=== PATIENT | male | born 1980 ===

== ENCOUNTER 2016-05-07 19:59 | Emergency (ER) | payer MEDICARE, OTHER ==
[2016-05-07 19:59] VITALS: BMI 20.1
[2016-05-07 20:06] VITALS: TEMP 97.6; O2SAT 98
[2016-05-07] MEDS ORDERED: Sodium Chloride 0.9% 1,000 ML IV ONE (20:27)
--- NOTE | 2016-05-07 20:42 | C.PDOC ---
History Of Present Illness 35 year old male with a history of DM, presents to the ED after being sent by Dr. Escamilla for uncontrolled blood sugar. Patient states he takes three different medications but for the past week he has not been able to control his blood sugar. He notes feeling dry and having a headache and denies abdominal pain, nausea, vomiting, fever, dizziness, or any other complaints at this time. He has a history of nephrotic syndrome and is s/p renal transplant. Time Seen by Provider: 05/07/16 20:23 Chief Complaint (Nursing): High Blood Sugar History Per: Patient History/Exam Limitations: no limitations Onset/Duration Of Symptoms: Days Current Symptoms Are (Timing): Still Present Severity: Mild Past Medical History Reviewed: Historical Data, Nursing Documentation, Vital Signs Vital Signs: Last Vital Signs Temp 97.6 F 05/07/16 23:35 Pulse 83 05/07/16 23:20 Resp 14 05/07/16 23:20 BP 118/80 05/07/16 23:20 Pulse Ox 98 05/07/16 23:20 - Medical History PMH: Diabetes, HTN, Hypercholesterolemia, Chronic Kidney Disease Other PMH: Nephrotic syndrome. Other Surgeries: Renal Transplant Family History: States: Unknown Family Hx - Social History Hx Tobacco Use: No Hx Alcohol Use: Yes (OCC) Hx Substance Use: Yes (IV drugs) - Immunization History Hx Tetanus Toxoid Vaccination: Yes Hx Influenza Vaccination: No Hx Pneumococcal Vaccination: No Review Of Systems Except As Marked, All Systems Reviewed And Found Negative. Constitutional: Positive for: Other (+Dry mucosa). Negative for: Fever, Chills Cardiovascular: Negative for: Chest Pain Respiratory: Negative for: Shortness of Breath Gastrointestinal: Negative for: Nausea, Vomiting, Abdominal Pain Neurological: Positive for: Headache. Negative for: Weakness, Numbness, Dizziness Physical Exam - Physical Exam Appears: Non-toxic, No Acute Distress Skin: Normal Color, Warm, Dry Head: Atraumatic, Normacephalic Eye(s): bilateral: Normal Inspection Oral Mucosa: Dry Chest: Symmetrical, No Deformity Cardiovascular: Rhythm Regular (+Tachycardic), No Murmur Respiratory: Normal Breath Sounds, No Accessory Muscle Use, No Rales, No Rhonchi , No Wheezing Gastrointestinal/Abdominal: Soft, No Tenderness, No Distention, No Guarding, No Rebound Extremity: Normal ROM, No Deformity Neurological/Psych: Oriented x3, Normal Speech, Normal Cognition ED Course And Treatment - Laboratory Results Result Diagrams: 05/07/16 20:37 05/07/16 20:37 Lab Interpretation: Abnormal Interpretation Of Abnormal: Blood sugar 389, decreased to 286 after 2 liters of normal saline. Regular insulin given O2 Sat by Pulse Oximetry: 98 (Room air) Pulse Ox Interpretation: Normal Progress Note: Blood work and Urinalysis ordered and reviewed. Patient treated with IV fluids. Reevaluation Time: 23:10 Reassessment Condition: Improved (Feels much better after hydration.) Disposition - Disposition Referrals: Kriss Escamilla MD [Staff Provider] - Disposition: HOME/ ROUTINE Disposition Time: 23:11 Condition: IMPROVED Instructions: Diabetes Mellitus Type 1 in Adults (ED) - Clinical Impression Clinical Impression: Diabetes type 1, uncontrolled - Scribe Statement The provider has reviewed the documentation as recorded by the Scribe Ernesto Adkins. Provider Attestation: All medical record entries made by the Scribe were at my direction and personally dictated by me. I have reviewed the chart and agree that the record accurately reflects my personal performance of the history, physical exam, medical decision making, and the department course for this patient. I have also personally directed, reviewed, and agree with the discharge instructions and disposition.
[2016-05-07 20:48] LABS: BASO % 0.2 % (0.0-2.0); EOS % 0.1 % (0.0-4.0); HEMATOCRIT 36.9 % (35.0-51.0); LYMPH # 1.2 K/uL (1.0-4.3); LYMPH % 14.9 % (20.0-40.0); MEAN CORPUSCULAR HEMOGLOBIN 28.2 pg (27.0-31.0); MEAN CORPUSCULAR HGB CONC 33.1 g/dL (33.0-37.0); MEAN PLATELET VOLUME 8.9 fL (7.2-11.7); MONO # 0.7 K/uL (0.0-0.8); MONO % 8.6 % (0.0-10.0); RED CELL DISTRIBUTION WIDTH 14.6 % (11.5-14.5); WHITE BLOOD COUNT 7.7 K/uL (4.8-10.8)
[2016-05-07 20:49] LABS: MEAN CELL VOLUME 85.1 fL (80.0-94.0)
[2016-05-07 20:53] LABS: CHLORIDE 93 mmol/L (98-107); POTASSIUM 3.7 mmol/L (3.6-5.2); SODIUM 134 mmol/L (132-148)
[2016-05-07 20:55] LABS: ALB/GLOB RATIO 1.2 (1.0-2.1); ALKALINE PHOSPHATASE 105 U/L (38-126); AST/SGOT 51 U/L (17-59); BILIRUBIN,TOTAL 0.8 mg/dL (0.2-1.3); CARBON DIOXIDE 25 mmol/L (22-30); GFR AFRICAN-AMERICAN > 60; TOTAL PROTEIN 7.7 g/dL (6.3-8.3)
[2016-05-07 20:56] LABS: ALT/SGPT 67 U/L (21-72); BLOOD UREA NITROGEN 13 mg/dL (9-20); GLUCOSE,RANDOM 349 mg/dL (75-110)
[2016-05-07] MEDS ORDERED: (Novolin R) Insulin Human Regular 100 units/ml vial SC ONE (23:12)
[2016-05-07] MEDS ORDERED: (Novolin R) Insulin Human Regular 100 units/ml vial ONE (23:14)
[2016-05-07 23:21] VITALS: BP 118/80; PULSE 83; RESP 14
[2016-05-07 23:31] LABS: URINE BILIRUBIN NEGATIVE (NEGATIVE); URINE BLOOD NEGATIVE (NEGATIVE); URINE COLOR Yellow (YELLOW); URINE GLUCOSE (UA) 3+ mg/dL (Normal); URINE KETONE NEGATIVE (NEGATIVE); URINE LEUKOCYTE ESTERASE NEG Leu/uL (Negative); URINE PROTEIN NEGATIVE (NEGATIVE); URINE UROBILINOGEN NORMAL mg/dL (0.2-1.0); WBC URINE < 1 /hpf (0-5)
== END 2016-05-07 23:44 | disposition home or self-care (01) ==
LOC: C.ER 19:59
DX: E10.65 Type 1 diabetes mellitus with hyperglycemia (principal)
CPT/HCPCS: 80053; 81001; 82009; 82948; 85025; 96372; 99285; J7040

== ENCOUNTER 2016-05-08 16:51 | Emergency (ER) | payer MEDICARE, OTHER ==
[2016-05-08 16:52] VITALS: BMI 20.1
[2016-05-08 17:12] VITALS: TEMP 97.5
[2016-05-08] MEDS ORDERED: (Novolin R) Insulin Human Regular 100 units/ml vial SC STA (18:09)
[2016-05-08] MEDS ORDERED: Sodium Chloride 0.9% 1,000 ML IV ONE (18:09)
[2016-05-08 18:29] LABS: BASO % 0.1 % (0.0-2.0); EOS % 0.2 % (0.0-4.0); HEMATOCRIT 32.4 % (35.0-51.0); LYMPH # 0.8 K/uL (1.0-4.3); LYMPH % 17.8 % (20.0-40.0); MEAN CELL VOLUME 86.4 fL (80.0-94.0); MEAN CORPUSCULAR HEMOGLOBIN 28.1 pg (27.0-31.0); MEAN CORPUSCULAR HGB CONC 32.6 g/dL (33.0-37.0); MEAN PLATELET VOLUME 8.6 fL (7.2-11.7); MONO # 0.5 K/uL (0.0-0.8); MONO % 10.4 % (0.0-10.0); NRBC % 0.1 % (0.0-2.0); WHITE BLOOD COUNT 4.4 K/uL (4.8-10.8)
[2016-05-08] MEDS ORDERED: (Novolin R) Insulin Human Regular 100 units/ml vial ONE (18:33)
[2016-05-08] MEDS ORDERED: (Novolin R) Insulin Human Regular 100 units/ml vial SC ONE (18:35)
[2016-05-08 18:37] LABS: CHLORIDE 98 mmol/L (98-107)
[2016-05-08 18:38] LABS: POTASSIUM 4.6 mmol/L (3.6-5.2); SODIUM 134 mmol/L (132-148)
[2016-05-08 18:40] LABS: GFR AFRICAN-AMERICAN > 60
[2016-05-08 18:41] LABS: ALB/GLOB RATIO 1.2 (1.0-2.1); ALKALINE PHOSPHATASE 77 U/L (38-126); ALT/SGPT 52 U/L (21-72); AST/SGOT 38 U/L (17-59); BILIRUBIN,TOTAL 0.5 mg/dL (0.2-1.3); BLOOD UREA NITROGEN 10 mg/dL (9-20); CALCIUM 8.3 mg/dl (8.6-10.4); CARBON DIOXIDE 25 mmol/L (22-30)
[2016-05-08 18:45] LABS: GLUCOSE,RANDOM 413 mg/dL (75-110)
--- NOTE | 2016-05-08 19:31 | C.PDOC ---
History Of Present Illness 35 y/o male presents to the ED with complains of hyperglycemia the past few weeks. Pt states BGL usually in low 100s and lately has been high 200-300s. Pt saw Dr Escamilla yesterday, treated with fluids and insulin. Pt felt like his sugar elevated again today, called Andi who referred patient to ED for evaluation. Pt took his usual medications. PMHx renal transplant. Denies fever, chills, SOB , vomiting, headache or any other complaints. Time Seen by Provider: 05/08/16 17:27 Chief Complaint (Nursing): Dizziness/Lightheaded History Per: Patient History/Exam Limitations: no limitations Onset/Duration Of Symptoms: Days Severity: Mild Recent travel outside of the [place]: No Past Medical History Reviewed: Historical Data, Nursing Documentation, Vital Signs Vital Signs: Last Vital Signs Temp 97.5 F L 05/08/16 17:11 Pulse 99 H 05/08/16 22:43 Resp 16 05/08/16 22:43 BP 132/88 05/08/16 22:43 Pulse Ox 98 05/08/16 23:33 - Medical History PMH: Diabetes, HTN, Hypercholesterolemia, Chronic Kidney Disease Family History: States: Unknown Family Hx - Social History Hx Tobacco Use: No Hx Alcohol Use: Yes (OCC) Hx Substance Use: Yes (IV drugs) - Immunization History Hx Tetanus Toxoid Vaccination: Yes Hx Influenza Vaccination: No Hx Pneumococcal Vaccination: No Review Of Systems Except As Marked, All Systems Reviewed And Found Negative. Constitutional: Negative for: Fever, Chills Cardiovascular: Negative for: Chest Pain Respiratory: Negative for: Shortness of Breath Gastrointestinal: Negative for: Vomiting Neurological: Negative for: Headache Physical Exam - Physical Exam Appears: Non-toxic, No Acute Distress Skin: Warm, Dry, No Rash Head: Atraumatic, Normacephalic Oral Mucosa: Moist Neck: Normal ROM, Supple Chest: Symmetrical Cardiovascular: Rhythm Regular, No Murmur Respiratory: Normal Breath Sounds, No Rales, No Rhonchi, No Wheezing Extremity: Bilateral: Atraumatic Neurological/Psych: Oriented x3, Normal Speech ED Course And Treatment - Laboratory Results Result Diagrams: 05/08/16 18:24 05/08/16 18:24 O2 Sat by Pulse Oximetry: 98 (on room air) Pulse Ox Interpretation: Normal Medical Decision Making Medical Decision Making: Plan: EKG, UDS, insulin, UA, IV fluids Case discussed with and pt seen by dr Gooden, pt had recently started two different psych meds likely cause of the hyperglycemia sugar down ( mildly hypoglycemic in the ED but resolved with food Disposition - Disposition Disposition: HOME/ ROUTINE Disposition Time: 23:17 Condition: FAIR Additional Instructions: Start new insulin as explained by dr Breaux and adjust dose as needed Follow up with PMD Prescriptions: Insulin Human Regular [Novolin R] 10 unit SQ AC #1 bottle Syringe, Disposable, 3 ml [Syringe] 1 each MC DAILY #100 disp.syrin Instructions: Diabetic Hyperglycemia (ED) - Clinical Impression Clinical Impression: Hyperglycemia - Scribe Statement The provider has reviewed the documentation as recorded by the Lorna Quinones Provider Attestation: All medical record entries made by the Lorna were at my direction and personally dictated by me. I have reviewed the chart and agree that the record accurately reflects my personal performance of the history, physical exam, medical decision making, and the department course for this patient. I have also personally directed, reviewed, and agree with the discharge instructions and disposition.
[2016-05-08 20:20] LABS: RBC URINE < 1 /hpf (0-3); URINE BILIRUBIN NEGATIVE (NEGATIVE); URINE BLOOD NEGATIVE (NEGATIVE); URINE COLOR Straw (YELLOW); URINE GLUCOSE (UA) 3+ mg/dL (Normal); URINE KETONE NEGATIVE (NEGATIVE); URINE LEUKOCYTE ESTERASE NEG Leu/uL (Negative); URINE PROTEIN NEGATIVE (NEGATIVE); URINE UROBILINOGEN NORMAL mg/dL (0.2-1.0)
[2016-05-08 22:43] VITALS: BP 132/88; PULSE 99; RESP 16
[2016-05-08 23:24] VITALS: O2SAT 98
--- NOTE | 2016-05-10 14:55 | CARD ---
APPROVED REPORT EKG Measurement Heart [id number] <Conclusion> Normal sinus rhytthm. poss ols inferior mi.
== END 2016-05-09 00:51 | disposition home or self-care (01) ==
LOC: C.ER 16:51
DX: E11.65 Type 2 diabetes mellitus with hyperglycemia (principal)
CPT/HCPCS: 80053; 81001; 82009; 82948; 85025; 93005; 96360; 96372; 99285; G0480; J7040

== ENCOUNTER 2016-05-17 21:45 | Inpatient (IN) | payer MEDICARE, MEDICAID ==
[2016-05-17 21:46] VITALS: BMI 20.1
[2016-05-17 21:55] VITALS: O2SAT 98
--- NOTE | 2016-05-17 22:05 | C.PDOC ---
History Of Present Illness Patient presents to the ER with a complaint of hearing voices saying that they are going to kill him. Patient states he has suicidal ideation, he plans on over dosing on pills. Denies any other injury or trauma. Time Seen by Provider: 05/17/16 22:05 Chief Complaint (Nursing): Psychiatric Evaluation History Per: Patient History/Exam Limitations: no limitations Onset/Duration Of Symptoms: Hrs Current Symptoms Are (Timing): Still Present Suicide/Self Injury Attempted (Context): None Modifying Factor(s): None Severity: None Pain Scale Rating Of: 0 Associated Symptoms: Suicidal Thoughts, Suicidal Plan (Overdosing with pills), Other (Hearing voices) Involuntary Hold By: None Recent travel outside of the [place]: No Additional History Per: Patient Past Medical History Reviewed: Historical Data, Nursing Documentation, Vital Signs Vital Signs: Last Vital Signs Temp 98.9 F 05/17/16 21:53 Pulse 118 H 05/17/16 21:53 Resp 20 05/17/16 21:53 BP 135/95 H 05/17/16 21:53 Pulse Ox 98 05/18/16 00:49 - Medical History PMH: Diabetes, HTN, Hypercholesterolemia, Chronic Kidney Disease Family History: States: No Known Family Hx - Social History Hx Tobacco Use: No Hx Alcohol Use: Yes (OCC) Hx Substance Use: Yes (IV drugs) - Immunization History Hx Tetanus Toxoid Vaccination: Yes Hx Influenza Vaccination: No Hx Pneumococcal Vaccination: No Review Of Systems Constitutional: Negative for: Fever, Chills Respiratory: Negative for: Shortness of Breath Gastrointestinal: Negative for: Nausea, Vomiting Psych: Positive for: Suicidal ideation (plans on overdosing with pills) Physical Exam - Physical Exam Appears: Well, Non-toxic Skin: Warm, Dry Eye(s): bilateral: Normal Inspection Oral Mucosa: Moist Neck: Supple Chest: Symmetrical Cardiovascular: Rhythm Regular Respiratory: No Rales, No Rhonchi, No Wheezing Gastrointestinal/Abdominal: Soft, No Tenderness Back: Normal Inspection Extremity: Normal ROM Extremity: Bilateral: Atraumatic Neurological/Psych: Oriented x3, Normal Speech, Normal Cognition Gait: Steady ED Course And Treatment - Laboratory Results Result Diagrams: 05/17/16 22:40 05/17/16 22:40 O2 Sat by Pulse Oximetry: 98 (Room air) Pulse Ox Interpretation: Normal Progress Note: Blood work and urinalysis ordered. Ativan PO administered. Pt will need tid or qid accuchecks to monitor his sugars Disposition Discussed With Dr.: Jesus Ferris Comment: accepted the pt on his service and took over the care at 12:45 AM Doctor Will See Patient In The: Hospital Counseled Patient/Family Regarding: Studies Performed, Diagnosis - Disposition Disposition: HOSPITALIZED Disposition Time: 22:05 Condition: FAIR - POA Present On Arrival: Poor Glycemic Control - Clinical Impression Clinical Impression: Schizophrenia - Scribe Statement The provider has reviewed the documentation as recorded by the Scribreed Ovalle All medical record entries made by the Scribe were at my direction and personally dictated by me. I have reviewed the chart and agree that the record accurately reflects my personal performance of the history, physical exam, medical decision making, and the department course for this patient. I have also personally directed, reviewed, and agree with the discharge instructions and disposition. Decision To Admit - Pt Status Changed To: Hospital Disposition Of: Inpatient - Admit Certification Admit to Inpatient:: After my assessment, the patient will require hospitalization for at least two midnights. This is because of the severity of symptoms shown, intensity of services needed, and/or the medical risk in this patient being treated as an outpatient. - InPatient: Physician Admission Certification: I certify that this patient requires 2 or more midnights of care for the following reason:: After my assessment, the patient will require hospitalization for at least two midnights. This is because of the severity of symptoms shown, intensity of services needed, and/or the medical risk in this patient being treated as an outpatient. - . Bed Request Type: Psychiatry Admitting Physician: Jesus Ferris Patient Diagnosis: Schizophrenia
[2016-05-17 22:45] LABS: BASO % 0.3 % (0.0-2.0); EOS % 0.2 % (0.0-4.0); HEMATOCRIT 38.3 % (35.0-51.0); LYMPH # 1.3 K/uL (1.0-4.3); LYMPH % 23.4 % (20.0-40.0); MEAN CELL VOLUME 87.7 fL (80.0-94.0); MEAN CORPUSCULAR HEMOGLOBIN 28.4 pg (27.0-31.0); MEAN CORPUSCULAR HGB CONC 32.4 g/dL (33.0-37.0); MEAN PLATELET VOLUME 8.3 fL (7.2-11.7); MONO # 0.7 K/uL (0.0-0.8); MONO % 13.3 % (0.0-10.0); NRBC % 0.1 % (0.0-2.0); WHITE BLOOD COUNT 5.5 K/uL (4.8-10.8)
[2016-05-17 22:54] LABS: CHLORIDE 97 mmol/L (98-107); SODIUM 137 mmol/L (132-148)
[2016-05-17 22:56] LABS: ALB/GLOB RATIO 1.3 (1.0-2.1); ALKALINE PHOSPHATASE 87 U/L (38-126); AST/SGOT 56 U/L (17-59); BILIRUBIN,TOTAL 0.6 mg/dL (0.2-1.3); CARBON DIOXIDE 23 mmol/L (22-30); GFR AFRICAN-AMERICAN > 60; TOTAL PROTEIN 7.1 g/dL (6.3-8.3)
[2016-05-17 22:57] LABS: ALCOHOL SERUM < 10 mg/dl (0-10); ALT/SGPT 77 U/L (21-72); BLOOD UREA NITROGEN 10 mg/dL (9-20); CALCIUM 9.3 mg/dl (8.6-10.4); GLUCOSE,RANDOM 362 mg/dL (75-110)
[2016-05-17 23:16] LABS: RBC URINE < 1 /hpf (0-3); URINE BILIRUBIN NEGATIVE (NEGATIVE); URINE BLOOD NEGATIVE (NEGATIVE); URINE COLOR Straw (YELLOW); URINE GLUCOSE (UA) 3+ mg/dL (Normal); URINE KETONE NEGATIVE (NEGATIVE); URINE LEUKOCYTE ESTERASE NEG Leu/uL (Negative); URINE PROTEIN NEGATIVE (NEGATIVE); URINE UROBILINOGEN NORMAL mg/dL (0.2-1.0); WBC URINE < 1 /hpf (0-5)
[2016-05-17] MEDS ORDERED: (Novolin R) Insulin Human Regular 100 units/ml vial SC ONE (23:33)
--- NOTE | 2016-05-18 13:53 | PCM.PSYCH ---
Initial Psychiatric Evaluation - Initial Psychiatric Evaluation Type of Admission: Voluntary Legal Status: Capacity Chief Complaint (in patient's own words): I was hearing voices, telling me that they will kill you. History of Present Illness and Precipitating Events: Patient is a 35 years old, single, unemployed, male with history of schizophrenia for last 5 years, reported compliant with treatment including Zyprexa, Abilify and Wellbutrin. Patient reported he was attending [facility] outpatient. Reported yesterday he started hearing voices telling him that they will kill him and also reported he had suicidal ideation with plan to overdose on his medication. Patient came to [facility] for help and was admitted to [facility]. Patient reported not feeling depressed but reported has some problem with sleep. Reported history of frequent suicidal ideations, last had yesterday with plan to overdose on his pills. Reported history of 2 previous suicidal attempts. First was in 2007 and second one 2013. And both he overdose on Cogentin and Xanax. Reported he was not admitted in the hospital after these attempts. History of 8 inpatient psychiatric admissions at [facility] and [facility] prior to this admission. This is his first admission at [facility]. Also reported hearing voices at times. The voices were telling him that they will kill him. Denied any manic symptoms. Heroin: Started using heroin at the age of 16 years, was using 20 bags daily, IV. His last use was 1 month ago. Longest period of abstinence 3 years. Relapsed a few months ago. History of 3 detox and 3 rehabs. Cocaine: Started at the age of 23 years, using unknown amount, last use reported 3 days ago. Cannabis: He was guarded about cannabis use but last use reported 3 weeks ago. Alcohol: He reports drinking alcohol once a week. Reported he drinks 5 beers each time. Last drink reported 2 days ago, 5 beers. Denied smoking cigarettes. Patient has history of right renal transplant. Reported he was in half-way for some time due to possession of weapon but not on probation. He was born in [place]. Has high school graduation. Not working. His last job was in 2000. He is on SSDI. He is single, has 2 children, 16 years and 14 years old who live with their mother. Patient lives with his mother. Height is 5 feet 6 inches and weight is 134 pounds. Current Medications: Active Medications Generic Name Dose Route Start Last Admin Trade Name Freq PRN Reason Stop Dose Admin Bupropion HCl 300 mg 05/18/16 13:45 Wellbutrin Xl PO DAILY DAISY Gabapentin 300 mg 05/18/16 18:00 Neurontin PO BID DAISY Haloperidol 5 mg 05/18/16 13:41 Haldol PO Q6 PRN Agitation Hydroxyzine HCl 25 mg 05/18/16 13:42 Atarax PO Q6 PRN Anxiety Olanzapine 10 mg 05/18/16 18:00 Zyprexa PO BID DAISY Trazodone HCl 50 mg 05/18/16 22:00 Desyrel PO HS DAISY Past Psychiatric History - Past Psychiatric History Previous Treatment History: Inpatient At [facility]: [facility], [facility] History of Abuse: None reported History of ETOH/Drug Use: See HPI History of Family Illness: None reported Pertinent Medical Hx (Current Medical&Sleep Prob, Allergies): Allergies Allergy/AdvReac Type Severity Reaction Status Date / Time No Known Allergies Allergy Verified 05/17/16 21:54 Glimepiride 4 mg PO BID 01/12/13 Mycophenolate [Cellcept Cap] 750 mg PO BID 01/12/13 Pantoprazole Sodium [Protonix] 1 tab PO DAILY 01/12/13 SITagliptin [Januvia] 50 mg PO DAILY 01/12/13 Tacrolimus [Prograf] 2 mg PO AMHS 01/12/13 predniSONE [predniSONE Tab] 5 mg PO DAILY 11/24/15 Insulin Glargine, Recombina [Lantus] 20 unit SC DAILY PRN 02/22/16 Amlodipine Besylate/Benazepril [Amlodipine-Benazepril 5-10 mg] 1 cap PO DAILY Aripiprazole 5 mg PO DAILY 05/08/16 Atorvastatin [Lipitor] 10 mg PO HS 05/08/16 Insulin Human Regular [Novolin R] 10 unit SQ AC #1 bottle 05/08/16 Meclizine HCl 12.5 mg PO DAILY 05/08/16 Olanzapine [Zyprexa] 20 mg PO DAILY 05/08/16 Zolpidem [Ambien] 10 mg PO DAILY 05/08/16 buPROPion XL [Wellbutrin XL] 300 mg PO DAILY 05/08/16 Hypertension Diabetes mellitus Hypercholesterinemia Right renal transplant secondary to Nephrotic syndrome Review of Systems - Psychiatric Psychiatric: Depression, Paranoia Mental Status Examination - Personal Presentation Personal Presentation: Looks stated age - Affect Affect: Depressed - Motor Activity Motor Activity: Calm - Reliability in Providing Information Reliability in Providing Information: Fair - Speech Speech: Organized - Mood Mood: Depressed - Formal Thought Process Formal Thought Process: No Impairment (In the time of evaluation) - Hallucinations/Delusions Hallucinations: Other (None reported) Delusions: Other - Obsessions/Compulsions Obsessions: None Compulsions: None - Cognitive Functions Orientation: Person, Place, Situation, Time Sensorium: Alert Attention/Concentration: Attentive Abstract Thinking: Dell Estimate of Intelligence: Average Judgement: Intact, as evidence by: Insight regarding need for hospitalization Memory: Recent intact, as evidence by: 3/3 object recall, Remote intact, as evidenced by: Ability to recall historical events - Risk Risk: Diminished functioning - Strength & Assets Inventory Strength & Assets Inventory: Family support, Cooperative - Limitations Limitations: Other DSM 5 DX - DSM 5 DSM 5 Diagnosis: Schizophrenia Opiate use disorder severe Cocaine use disorder Cannabis use disorder - Recommended/Plan of Treatment Treatment Recommendations and Plan of Treatment: Patient education Supportive therapy We will start home medications including Zyprexa, Wellbutrin, insulin, amlodipine, enalapril and Crestor. Medical consult Other when necessary medications Projected ELOS: 8-10 days - Smoking Cessation Smoking Cessation Initiated: No Reason for not providing: Patient doesn't smoke cigarettes
[2016-05-18] MEDS ORDERED: (Lantus) Insulin Glargine, Recombinant SC SCH (14:00)
[2016-05-18] MEDS: buPROPion 150 mg/24 Hours XL Tab PO SCH (14:20)
--- NOTE | 2016-05-18 15:17 | CP.PCM.CON ---
<Montse Melendez - Last Filed: 05/18/16 15:43> History of Present Illness - History of Present Illness History of Present Illness: Medicine Consult Note for Dr. Hutchinson Reason for consult: T2DM, hx of kidney transplant, HTN Patient is a 35year old male PMHx HTN, T2DM, hypercholesterolemia, anxiety, schizophrenia, and a kidney transplant in 2002 admitted to psychiatric unit for suicidal ideations. Medicine team was consulted to manage his medical problems. Patient reported he wanted to kill himself as voices were telling him to do so. The last time he tried to commit suicide was 2007 and 2013 and did so with ingestion of pills. Patient did not ingest any pills and decided to come in. Patient was diagnosed with renal failure in 2001 and was on hemodialysis for 1 year before a kidney transplant in 2002. Patient has been going to the transplant clinic every 3 months since transplant and his last visit was 2 months ago for a general follow up. Patient was diagnosed with diabetes from nephrotic syndrome at the time of his transplant. Patient has an extensive drug abuse history. He was smoking marijuana since he was in his 20s and quit 1 month ago. 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 Patient smoked crack 3 days ago and was dong so for 10 years. He promised his mother he would quit this time. Patient reported smoking 1 gram. Patient also drinks 5 large beers every week and smokes cigarettes once a week. He lives at home with his mother and does not work. Patient denied any recent travel or sick contacts. He reported temporal headaches for which he takes tylenol and some light headedness and dizziness whenever he stands up from a sitting position which has been present for the past couple of weeks. Patient also reports some shortness of breath and feeling like his heart is racing which arises at random occasions. Patient has also had a decreased appetite and his last BM was 2 days ago. Since being on haldol he reported losing 20 pounds. Patient was also complaining of polyuria and polydipsia. He denied any acute chest pain, abdominal pain, nausea, vomiting, diarrhea, pain in his legs, focal weakness. PMD: Dr. Escamilla Psychiatrist: Dr. Margy Villela [facility]rology: [facility] [no single doctor] Meds: reconciled ALL: NKDA PMHx: DM, HTN, Hypercholesterolemia, anxiety PSur AV fistula placed R arm, 2002 kidney transplant, 1999 retinal detachment FamHx: father had NV and CVA in his 30s; aunt had leukemia SocHx: Smoking marijuana since he was in his 20s and quit 1 month ago. Using heroin since he was 16 years old and quit 1 month ago. Smoked crack 3 days ago and was dong so for 10 years. Drinks 5 large beers every week and smokes cigarettes once a week. ROS: headache, dizziness, lightheadness, SOB, polyuria, polydipsia, decreased weight, decreased appetite Review of Systems - Constitutional Constitutional: As Per HPI. absent: Chills, Fever - EENT Eyes: As Per HPI, Blurred Vision (hx retinal detachment) Ears: As Per HPI, Dizziness Nose/Mouth/Throat: As Per HPI. absent: Sore Throat - Cardiovascular Cardiovascular: As Per HPI, Palpitations. absent: Chest Pain, Chest Pain at Rest, Claudication, Diaphoresis, Dyspnea, Dyspnea on Exertion, Edema, Pedal Edema - Respiratory Respiratory: As Per HPI. absent: Cough, Dyspnea, Dyspnea on Exertion, Wheezing , Chest Congestion - Gastrointestinal Gastrointestinal: As Per HPI. absent: Abdominal Pain, Constipation, Diarrhea, Nausea, Vomiting - Genitourinary Genitourinary: As Per HPI, Urinary Frequency. absent: Dysuria, Nocturia - Musculoskeletal Musculoskeletal: As Per HPI. absent: Numbness, Stiffness, Tingling - Integumentary Integumentary: As Per HPI. absent: Pruritus, Rash - Neurological Neurological: As Per HPI, Dizziness, Headaches, Weakness. absent: Numbness, Focal Weakness, Syncope, Tingling - Psychiatric Psychiatric: As Per HPI, Anxiety, Change in Appetite, Depression, Suicidal Ideation, Visual Hallucinations - Endocrine Endocrine: As Per HPI, Palpitations, Polydipsia, Polyuria. absent: Polyphagia - Hematologic/Lymphatic Hematologic: As Per HPI. absent: Easy Bleeding, Easy Bruising Past Patient History - Infectious Disease Hx of Infectious Diseases: None - Past Social History Smoking Status: Current Some Days Smoker - CARDIAC Hx Hypercholesterolemia: Yes Hx Hypertension: Yes - PULMONARY Hx Respiratory Disorders: No Hx Tuberculosis: No - NEUROLOGICAL Hx Seizures: No - HEENT Hx HEENT Problems: No - RENAL Hx Chronic Kidney Disease: Yes - ENDOCRINE/METABOLIC Hx Endocrine Disorders: Yes Hx Diabetes Mellitus Type 2: Yes - HEMATOLOGICAL/ONCOLOGICAL Hx Human Immunodeficiency Virus (HIV): No - INTEGUMENTARY Hx Dermatological Problems: No - MUSCULOSKELETAL/RHEUMATOLOGICAL Hx Musculoskeletal Disorders: No - GASTROINTESTINAL Hx Gastrointestinal Disorders: No - GENITOURINARY/GYNECOLOGICAL Hx Sexually Transmitted Disorders: No - PSYCHIATRIC Hx Substance Use: Yes - SURGICAL HISTORY Hx Surgeries: Yes Hx Eye Surgery: Yes (left retina detachment) Hx Kidney Transplant: Yes (2002 right kidney) - ANESTHESIA Hx Anesthesia: Yes Hx Anesthesia Reactions: No Meds Allergies/Adverse Reactions: Allergies Allergy/AdvReac Type Severity Reaction Status Date / Time No Known Allergies Allergy Verified 05/17/16 21:54 - Medications Medications: Current Medications Amlodipine Besylate (Norvasc) 5 mg PO DAILY [facility] Last Admin: 05/18/16 14:15 Dose: 5 mg Bupropion HCl (Wellbutrin Xl) 300 mg PO DAILY [facility] Last Admin: 05/18/16 14:20 Dose: Not Given Enalapril Maleate (Vasotec) 5 mg PO DAILY [facility] Gabapentin (Neurontin) 300 mg PO BID [facility] Haloperidol (Haldol) 5 mg PO Q6 PRN PRN Reason: Agitation Last Admin: 05/18/16 14:15 Dose: 5 mg Hydroxyzine HCl (Atarax) 25 mg PO Q6 PRN PRN Reason: Anxiety Last Admin: 05/18/16 14:15 Dose: 25 mg Insulin Glargine (Lantus) 20 unit SC DAILY [facility] Last Admin: 05/18/16 14:16 Dose: 20 u Insulin Human Regular (Novolin R) 10 unit SC ACHS [facility] Olanzapine (Zyprexa) 10 mg PO BID [facility] Rosuvastatin Calcium (Crestor) 5 mg PO HS DAISY Trazodone HCl (Desyrel) 50 mg PO HS [facility] Physical Exam - Constitutional Appears: Non-toxic, No Acute Distress - Head Exam Head Exam: ATRAUMATIC, NORMAL INSPECTION, NORMOCEPHALIC - Eye Exam Eye Exam: Normal appearance. absent: Conjunctival injection, Scleral icterus - ENT Exam ENT Exam: Mucous Membranes Dry - Neck Exam Neck exam: Positive for: Normal Inspection - Respiratory Exam Respiratory Exam: Clear to Auscultation Bilateral, NORMAL BREATHING PATTERN. absent: Accessory Muscle Use, Rales, Rhonchi, Wheezes, Respiratory Distress - Cardiovascular Exam Cardiovascular Exam: Tachycardia, REGULAR RHYTHM, +S1, +S2 - GI/Abdominal Exam GI & Abdominal Exam: Normal Bowel Sounds, Soft. absent: Distended, Firm, Guarding, Rigid, Tenderness - Extremities Exam Extremities exam: Positive for: normal capillary refill, normal inspection, pedal pulses present - Back Exam Back exam: NORMAL INSPECTION. absent: rash noted, tenderness - Neurological Exam Neurological exam: Alert, Oriented x3 - Psychiatric Exam Psychiatric exam: Flat Affect, Suicidal Ideation - Skin Skin Exam: Dry, Intact, Normal Color, Warm Results - Vital Signs Recent Vital Signs: Last Vital Signs Temp 96.6 F L 05/18/16 07:31 Pulse 108 H 05/18/16 07:31 Resp 18 05/18/16 07:31 BP 130/92 H 05/18/16 07:31 Pulse Ox 98 05/18/16 02:12 - Labs Result Diagrams: 05/17/16 22:40 05/17/16 22:40 Labs: Laboratory Results - last 24 hr 05/18/16 05/18/16 05/18/16 00:52 07:16 11:36 POC Glucose (mg/dL) 167 H 275 H 279 H Assessment & Plan - Assessment and Plan (Free Text) Assessment: 35year old male PMHx HTN, T2DM, hypercholesterolemia, anxiety, schizophrenia, and a kidney transplant in 2002 Plan: Diabetes f/u HgbA1c restart patient on home medications: Glimepiride 1mg po daily Lantus 20U SC qhs Neurontin 300mg po bid Januvia 25mg po daily Accucheck RISS Diabetic Diet Hx Kidney transplant 2002 Tacrolimus 1mg po hs Tacrolimus 2mg po qam Prednisone 5mg po daily Cellcept 500mg po q12 Hypertension Norvasc 5mg po daily Enalapril 5mg po daily f/u EKG f/u TSH and free T4 Hypercholesterolemia f/u lipid panel Crestor 5mg PO QHS Depression and suicidal ideation Managed as per psych Schizophrenia Managed as per psych Multi drug abuse Managed as per psych PPX Pepcid 20mg po daily Patient is ambulating- no SCDs on psych floor Diabetic Diet Case discussed with Dr. Jasper Melendez PGY1 <Dorene Hutchinson V - Last Filed: 05/31/16 05:30> Results - Vital Signs Recent Vital Signs: Last Vital Signs Temp 97.8 F 05/29/16 11:01 Pulse 99 H 05/29/16 11:01 Resp 20 05/29/16 11:01 BP 101/71 04/13/17 11:01 Pulse Ox 98 05/18/16 02:12 - Labs Result Diagrams: 05/26/16 06:49 05/26/16 06:49 Attending/Attestation - Attestation I have personally seen and examined this patient.: Yes I have fully participated in the care of the patient.: Yes I have reviewed all pertinent clinical information: Yes Notes (Text): This is a late computer entry for 05/18/16. Patient seen, examined, and case discussed with day-time resident. Psych request medical consult for diabetes and hx of kidney transplant. Agree with assessment/plan completed by the resident. Discussed orders with the resident. Assessment/Plan: Diabetes type 2 f/u HgbA1c restart patient on home medications: Glimepiride 1mg po daily Lantus 20U SC qhs Neurontin 300mg po bid Januvia 25mg po daily Accucheck RISS Diabetic Diet Hx Kidney transplant 2002 Tacrolimus 1mg po hs Tacrolimus 2mg po qam Prednisone 5mg po daily Cellcept 500mg po q12 Hypertension Norvasc 5mg po daily Enalapril 5mg po daily f/u EKG f/u TSH and free T4 Hypercholesterolemia f/u lipid panel Crestor 5mg PO QHS Depression and suicidal ideation Managed as per psych Schizophrenia Managed as per psych Multi drug abuse Managed as per psych PPX Pepcid 20mg po daily Patient is ambulating- no SCDs on psych floor Diabetic Diet
[2016-05-18] MEDS ORDERED: (Novolin R) Insulin Human Regular 100 units/ml vial SC SCH (16:30)
[2016-05-18] MEDS: (Novolog) Insulin Aspart, Recombinant 100 u/ml 10 ml vial SC SCH ×2 (18:45→21:14)
[2016-05-19 07:35] LABS: BASO % 0.4 % (0.0-2.0); EOS % 0.2 % (0.0-4.0); LYMPH # 0.8 K/uL (1.0-4.3); LYMPH % 16.9 % (20.0-40.0); MEAN CELL VOLUME 87.7 fL (80.0-94.0); MEAN CORPUSCULAR HEMOGLOBIN 29.1 pg (27.0-31.0); MEAN CORPUSCULAR HGB CONC 33.2 g/dL (33.0-37.0); MEAN PLATELET VOLUME 8.5 fL (7.2-11.7); MONO # 0.6 K/uL (0.0-0.8); MONO % 12.6 % (0.0-10.0); RED CELL DISTRIBUTION WIDTH 15.1 % (11.5-14.5); WHITE BLOOD COUNT 4.6 K/uL (4.8-10.8)
[2016-05-19 07:51] LABS: POTASSIUM 5.2 mmol/L (3.6-5.2)
[2016-05-19 07:53] LABS: ALB/GLOB RATIO 1.3 (1.0-2.1); BILIRUBIN,TOTAL 0.7 mg/dL (0.2-1.3); TOTAL PROTEIN 6.7 g/dL (6.3-8.3)
[2016-05-19 07:54] LABS: CALCIUM 8.9 mg/dl (8.6-10.4); MAGNESIUM 1.4 mg/dL (1.6-2.3); PHOSPHOROUS 3.2 mg/dL (2.5-4.5)
[2016-05-19] MEDS: (Novolog) Insulin Aspart, Recombinant 100 u/ml 10 ml vial SC SCH ×4 (08:11→21:15)
[2016-05-19 08:24] LABS: THYROID STIMULATING HORMONE 0.43 mIU/L (0.46-4.68)
[2016-05-19] MEDS: buPROPion 150 mg/24 Hours XL Tab PO SCH (10:46)
--- NOTE | 2016-05-19 11:00 | CP.PCM.PN ---
<Almaz Herrera - Last Filed: 05/19/16 15:48> Subjective - Date & Time of Evaluation Date of Evaluation: 05/19/16 Time of Evaluation: 07:50 - Subjective Subjective: Internal medicine progress note for Hospitalist service-Almaz Herrera, PGY-1 Pt S & E at bedside. Pt reports some fatigue, few chills overnight. Admits to decreased appetite- last meal was last - has not had a BM since. Denies N/V/F, SOB, CP, abdominal pain. Objective - Vital Signs/Intake and Output Vital Signs (last 24 hours): Temp Pulse Resp BP Pulse Ox 96.6 F L 103 H 18 92/68 L 98 05/18/16 07:31 05/18/16 16:01 05/18/16 07:31 05/19/16 10:46 05/18/16 02:12 - Medications Medications: Current Medications Amlodipine Besylate (Norvasc) 5 mg PO BID [facility] Last Admin: 05/19/16 10:42 Dose: Not Given Bupropion HCl (Wellbutrin Xl) 300 mg PO DAILY [facility] Last Admin: 05/19/16 10:46 Dose: 300 mg Enalapril Maleate (Vasotec) 5 mg PO DAILY [facility] Last Admin: 05/19/16 10:46 Dose: Not Given Famotidine (Pepcid) 20 mg PO DAILY [facility] Last Admin: 05/19/16 10:43 Dose: 20 mg Gabapentin (Neurontin) 300 mg PO BID [facility] Last Admin: 05/19/16 10:42 Dose: 300 mg Glimepiride (Amaryl) 1 mg PO DAILY [facility] Last Admin: 05/19/16 10:44 Dose: 1 mg Haloperidol (Haldol) 5 mg PO Q6 PRN PRN Reason: Agitation Last Admin: 05/18/16 14:15 Dose: 5 mg Hydroxyzine HCl (Atarax) 25 mg PO Q6 PRN PRN Reason: Anxiety Last Admin: 05/18/16 14:15 Dose: 25 mg Insulin Aspart (Novolog) 0 unit SC ACHS [facility]Y PRN Reason: Protocol Last Admin: 05/19/16 08:11 Dose: 3 unit Insulin Glargine (Lantus) 20 unit SC HS [facility] Lorazepam (Ativan) 1 mg PO Q8 PRN PRN Reason: Anxiety Last Admin: 05/18/16 18:43 Dose: 1 mg Mycophenolate Mofetil (Cellcept) 500 mg PO Q12 [facility] Last Admin: 05/19/16 10:45 Dose: 500 mg Olanzapine (Zyprexa) 10 mg PO BID [facility] Last Admin: 05/19/16 10:43 Dose: 10 mg Prednisone (Prednisone Tab) 5 mg PO DAILY [facility] Last Admin: 05/19/16 10:45 Dose: 5 mg Rosuvastatin Calcium (Crestor) 5 mg PO [facility] Last Admin: 05/18/16 21:13 Dose: 5 mg Sitagliptin Phosphate (Januvia) 25 mg PO DAILY [facility] Last Admin: 05/19/16 10:44 Dose: 25 mg Tacrolimus (Prograf Cap) 2 mg PO QAM [facility] Last Admin: 05/19/16 10:44 Dose: 2 mg Tacrolimus (Prograf Cap) 1 mg PO [facility] Last Admin: 05/18/16 21:14 Dose: 1 mg Trazodone HCl (Desyrel) 50 mg PO [facility] Last Admin: 05/18/16 21:13 Dose: 50 mg - Labs Labs: 05/19/16 07:28 05/19/16 07:28 - Constitutional Appears: Non-toxic, No Acute Distress - Head Exam Head Exam: ATRAUMATIC, NORMAL INSPECTION, NORMOCEPHALIC - Eye Exam Eye Exam: EOMI, Normal appearance, PERRL Pupil Exam: NORMAL ACCOMODATION, PERRL - ENT Exam ENT Exam: Mucous Membranes Moist, Normal Exam - Neck Exam Neck Exam: Full ROM, Normal Inspection - Respiratory Exam Respiratory Exam: Clear to Ausculation Bilateral, NORMAL BREATHING PATTERN - Cardiovascular Exam Cardiovascular Exam: REGULAR RHYTHM, +S1, +S2 - GI/Abdominal Exam GI & Abdominal Exam: Soft, Normal Bowel Sounds. absent: Tenderness - Extremities Exam Extremities Exam: Full ROM. absent: Normal Inspection (Slight tremors of B/L hands on extension) - Neurological Exam Neurological Exam: Alert, Awake, CN II-XII Intact, Oriented x3 - Psychiatric Exam Psychiatric exam: Normal Affect, Normal Mood - Skin Skin Exam: Dry, Intact, Normal Color, Warm Assessment and Plan - Assessment and Plan (Free Text) Assessment: Diabetes HgbA1c 12.1 BS now 251 Cont home medications: Glimepiride 1mg po daily, Lantus 20U SC qhs increased to 24 Units HS Started pt on ISS AcHS Neurontin 300mg po bid Januvia 25mg po daily- holding Accucheck RISS Diabetic Diet Hx Kidney transplant 2002 Tacrolimus 1mg po hs Tacrolimus 2mg po qam Prednisone 5mg po daily Cellcept 500mg po q12 Hypertension Norvasc 5mg po daily Enalapril 5mg po daily f/u EKG TSH 0.43- low Free T4 1.07 Hypercholesterolemia Lipid panel TG 85, Chol 121, LDL 46, HDl 49 Cont Crestor 5mg PO QHS Hypomagnesemia Mg 1.4 Replaced Monitor Depression and suicidal ideation Managed as per psych Schizophrenia Managed as per psych Multi drug abuse Managed as per psych PPX Pepcid 20mg po daily Patient is ambulating- no SCDs on psych floor Diabetic Diet Dispo: mgmt as per psych Cont current medical mgmt Ambulate DW attending <Juan C Miles - Last Filed: 06/21/16 18:07> Objective - Vital Signs/Intake and Output Vital Signs (last 24 hours): Temp Pulse Resp BP Pulse Ox 97.8 F 99 H 20 101/71 98 05/29/16 11:01 05/29/16 11:01 05/29/16 11:01 05/29/16 11:01 05/18/16 02:12 - Labs Labs: 05/26/16 06:49 05/26/16 06:49 Attending/Attestation - Attestation I have personally seen and examined this patient.: Yes I have fully participated in the care of the patient.: Yes I have reviewed all pertinent clinical information, including history, physical exam and plan: Yes Notes (Text): Patient seen and examined with the resident. Agree with the resident's evaluation, assessment and plan. Diabetes HgbA1c 12.1 BS now 251 Cont home medications: Glimepiride 1mg po daily, Lantus 20U SC qhs increased to 24 Units HS Started pt on ISS [facility] Neurontin 300mg po bid Januvia 25mg po daily- holding Accucheck RISS Diabetic Diet Hx Kidney transplant 2002 Tacrolimus 1mg po hs Tacrolimus 2mg po qam Prednisone 5mg po daily Cellcept 500mg po q12
--- NOTE | 2016-05-19 12:11 | PCM.PYCHPN ---
Psychiatric Progress Note - Psychiatric Progress Note Patient seen today, length of contact: 18 min Patient Chief Complaint: Suicidal Ideation Problems Identified/Issues Discussed: Patient seen and evaluated, chart reviewed and discussed with the nurse. Pt. remained disorganized and internally preoccupied. He reports of hearing voices telling him to hurt himself. Pt. admits to feeling as if someone is following/ watching him. Pt. denies visual hallucinations. He appeared suspicious, paranoid and found to be laughing inappropriately. Exhibits psychomotor agitation. His is taking medication and denies any side effects. Medical Problems: DM Hypercholestrolimia HTN Medication Change: No Medical Record Reviewed: Yes Mental Status Examination - Cognitive Function Orientation: Person, Place, Situation, Time Memory: Intact Attention: Poor Concentration: Poor Association: Loose Fund of Knowledge: Poor - Mood Mood: Depressed, Anxious - Affect Affect: Constricted, Depressed - Speech Speech: Soft - Formal Thought Process Formal Thought Process: Hallucinations, Delusions, Paranoia, Loosening of associations - Suicidal Ideation Suicidal Ideation: No - Homicidal Ideation Homicidal Ideation: No Goal/Treatment Plan - Goal/Treatment Plan Need for Continued Stay: Discharge may exacerbated symptoms, Severe functional impairment Progress Toward Problem(s) and Goals/Treatment Plan: Schizoaffective disorder depressed type CBT Psychoeducation Supportive therapy, group therapy, individual therapy Olanzapine 10 mg by mouth twice a day Neurontin 300 mg by mouth 2 times a day Trazodone 50 mg by mouth daily at bedtime Wellbutrin 300 mg by mouth daily DM Continue prescribed medications (insulin, sitagleptin, glimipride) Monitor signs symptoms Hypercholestrolimia Continue prescribed medications (rovustatin) Monitor signs symptoms HTN Continue prescribed medications (enalapril, amlodipine) Monitor signs symptoms - Smoking Cessation Smoking Cessation Initiated: No
[2016-05-19] MEDS ORDERED: Magnesium Oxide 400 mg Tab UD PO ONE (16:45)
[2016-05-19] MEDS ORDERED: (Lantus) Insulin Glargine, Recombinant SC SCH ×2 (22:00)
[2016-05-20] MEDS: (Novolog) Insulin Aspart, Recombinant 100 u/ml 10 ml vial SC SCH ×5 (08:06→21:39)
[2016-05-20] MEDS: buPROPion 150 mg/24 Hours XL Tab PO SCH (10:36)
[2016-05-20] MEDS ORDERED: (Lantus) Insulin Glargine, Recombinant SC SCH (13:43)
--- NOTE | 2016-05-20 13:50 | CP.PCM.PN ---
<Almaz Herrera - Last Filed: 05/20/16 13:48> Subjective - Date & Time of Evaluation Date of Evaluation: 05/20/16 Time of Evaluation: 11:00 - Subjective Subjective: Internal medicine progress note for Hospitalist service- Almaz Herrera, PGY-1 Pt S & E at bedside. Pt reports BM yesterday, is eating/tolerating diet. Continues with fatigue, feels anxious. Denies N/V/F/C, SOB, CP, abdominal pain, other complaints. Objective - Vital Signs/Intake and Output Vital Signs (last 24 hours): Temp Pulse Resp BP Pulse Ox 97.2 F L 82 18 100/75 98 05/20/16 07:29 05/20/16 07:29 05/20/16 07:29 05/20/16 10:37 05/18/16 02:12 - Medications Medications: Current Medications Amlodipine Besylate (Norvasc) 5 mg PO BID [facility] Last Admin: 05/20/16 10:37 Dose: 5 mg Bupropion HCl (Wellbutrin Xl) 300 mg PO DAILY [facility] Last Admin: 05/20/16 10:36 Dose: 300 mg Enalapril Maleate (Vasotec) 5 mg PO DAILY [facility] Last Admin: 05/20/16 10:37 Dose: 5 mg Famotidine (Pepcid) 20 mg PO DAILY [facility] Last Admin: 05/20/16 10:38 Dose: 20 mg Gabapentin (Neurontin) 300 mg PO BID [facility] Last Admin: 05/20/16 10:36 Dose: 300 mg Glimepiride (Amaryl) 1 mg PO DAILY [facility] Last Admin: 05/20/16 10:38 Dose: 1 mg Haloperidol (Haldol) 5 mg PO Q6 PRN PRN Reason: Agitation Last Admin: 05/18/16 14:15 Dose: 5 mg Hydroxyzine HCl (Atarax) 25 mg PO Q6 PRN PRN Reason: Anxiety Last Admin: 05/18/16 14:15 Dose: 25 mg Insulin Aspart (Novolog) 0 unit SC ACHS [facility] PRN Reason: Protocol Last Admin: 05/20/16 11:56 Dose: 8 unit Insulin Aspart (Novolog) 6 unit SC AC [facility] Insulin Glargine (Lantus) 26 unit SC HS [facility] Lorazepam (Ativan) 1 mg PO Q8 PRN PRN Reason: Anxiety Last Admin: 05/20/16 13:47 Dose: 1 mg Mycophenolate Mofetil (Cellcept) 500 mg PO Q12 [facility] Last Admin: 05/20/16 10:37 Dose: 500 mg Olanzapine (Zyprexa) 10 mg PO BID [facility] Last Admin: 05/20/16 10:36 Dose: 10 mg Prednisone (Prednisone Tab) 5 mg PO DAILY [facility] Last Admin: 05/20/16 10:38 Dose: 5 mg Rosuvastatin Calcium (Crestor) [address] [facility] Last Admin: 05/19/16 21:14 Dose: 5 mg Sitagliptin Phosphate (Januvia) 25 mg PO DAILY [facility] Last Admin: 05/19/16 10:44 Dose: 25 mg Tacrolimus (Prograf Cap) 2 mg PO QAM [facility] Last Admin: 05/20/16 10:35 Dose: 2 mg Tacrolimus (Prograf Cap) [address] [facility] Last Admin: 05/19/16 21:14 Dose: 1 mg Trazodone HCl (Desyrel) [address] [facility] Last Admin: 05/19/16 21:14 Dose: 50 mg - Labs Labs: 05/19/16 07:28 05/19/16 07:28 - Constitutional Appears: Non-toxic, No Acute Distress - Head Exam Head Exam: ATRAUMATIC, NORMAL INSPECTION, NORMOCEPHALIC - Eye Exam Eye Exam: EOMI, Normal appearance, PERRL Pupil Exam: NORMAL ACCOMODATION, PERRL - ENT Exam ENT Exam: Mucous Membranes Moist, Normal Exam - Neck Exam Neck Exam: Full ROM, Normal Inspection - Respiratory Exam Respiratory Exam: Clear to Ausculation Bilateral, NORMAL BREATHING PATTERN. absent: Rales, Rhonchi, Wheezes, Respiratory Distress - Cardiovascular Exam Cardiovascular Exam: REGULAR RHYTHM, +S1, +S2 - GI/Abdominal Exam GI & Abdominal Exam: Soft, Normal Bowel Sounds. absent: Distended, Firm, Guarding, Rigid, Tenderness - Extremities Exam Extremities Exam: Full ROM, Normal Inspection. absent: Pedal Edema, Tenderness - Back Exam Back Exam: Full ROM, NORMAL INSPECTION - Neurological Exam Neurological Exam: Alert, Awake, CN II-XII Intact, Normal Gait, Oriented x3 - Psychiatric Exam Psychiatric exam: Normal Affect, Normal Mood - Skin Skin Exam: Dry, Intact, Normal Color, Warm Assessment and Plan - Assessment and Plan (Free Text) Assessment: Diabetes HgbA1c 12.1 BS now 232 Cont home medications: Glimepiride 1mg po daily, Lantus 24U SC qhs increased to 26 Units HS Started pt on ISS [facility] Neurontin 300mg po bid Januvia 25mg po daily- holding Started Short acting insulin 6 units AC Accucheck RISS Diabetic Diet Monitor Hx Kidney transplant 2002 Tacrolimus 1mg po hs Tacrolimus 2mg po qam Prednisone 5mg po daily Cellcept 500mg po q12 Hypertension BP 126/84 Cont Norvasc 5mg po daily Cont Enalapril 5mg po daily f/u EKG TSH 0.43- low Free T4 1.07 Hypercholesterolemia Lipid panel TG 85, Chol 121, LDL 46, HDl 49 Cont Crestor 5mg PO QHS Depression and suicidal ideation Managed as per psych Schizophrenia Managed as per psych Multi drug abuse Managed as per psych PPX Pepcid 20mg po daily Patient is ambulating- no SCDs on psych floor Diabetic Diet Dispo: mgmt as per psych Cont current medical mgmt Ambulate Montior lytes & blood sugar DW attending <Juan C Miles - Last Filed: 06/24/16 12:47> Objective - Vital Signs/Intake and Output Vital Signs (last 24 hours): Temp Pulse Resp BP Pulse Ox 97.8 F 99 H 20 101/71 98 05/29/16 11:01 05/29/16 11:01 05/29/16 11:01 05/29/16 11:01 05/18/16 02:12 - Labs Labs: 05/26/16 06:49 05/26/16 06:49 Attending/Attestation - Attestation I have personally seen and examined this patient.: Yes I have fully participated in the care of the patient.: Yes I have reviewed all pertinent clinical information, including history, physical exam and plan: Yes Notes (Text): Patient seen and examined with the resident. Agree with the resident's evaluation, assessment and plan. Diabetes HgbA1c 12.1 BS now 232 Cont home medications: Glimepiride 1mg po daily, Lantus 24U SC qhs increased to 26 Units HS Started pt on ISS [facility] Neurontin 300mg po bid Januvia 25mg po daily- holding Started Short acting insulin 6 units AC Accucheck RISS Diabetic Diet Monitor Hx Kidney transplant 2002 Tacrolimus 1mg po hs Tacrolimus 2mg po qam Prednisone 5mg po daily Cellcept 500mg po q12 Continue treatment per psych
--- NOTE | 2016-05-20 17:13 | PCM.PYCHPN ---
Psychiatric Progress Note - Psychiatric Progress Note Patient seen today, length of contact: 17 min Patient Chief Complaint: i am still hearing voices Problems Identified/Issues Discussed: Patient seen and evaluated, chart reviewed and discussed with the nurse. Pt. reports of hearing voices telling him to hurt himself. Pt. admits to feeling as if someone is following/watching him. He remained disorganized and internally preoccupied. He appeared suspicious, paranoid and found to be laughing inappropriately. Exhibits psychomotor agitation. His is taking medication and denies any side effects. Medical Problems: DM Hypercholestrolimia HTN Medication Change: Yes (Increase olanzapine) Medical Record Reviewed: Yes Mental Status Examination - Cognitive Function Orientation: Person, Place, Situation, Time Memory: Intact Attention: Poor Concentration: Poor Association: Loose Fund of Knowledge: Poor - Mood Mood: Depressed, Anxious - Affect Affect: Constricted, Depressed - Speech Speech: Soft - Formal Thought Process Formal Thought Process: Hallucinations, Delusions, Paranoia, Loosening of associations - Suicidal Ideation Suicidal Ideation: No - Homicidal Ideation Homicidal Ideation: No Goal/Treatment Plan - Goal/Treatment Plan Need for Continued Stay: Discharge may exacerbated symptoms, Severe functional impairment Progress Toward Problem(s) and Goals/Treatment Plan: Schizoaffective disorder depressed type CBT Psychoeducation Supportive therapy, group therapy, individual therapy Olanzapine 10 mg by mouth twice a day Neurontin 300 mg by mouth 2 times a day Trazodone 50 mg by mouth daily at bedtime Wellbutrin 300 mg by mouth daily DM Continue prescribed medications (insulin, sitagleptin, glimipride) Monitor signs symptoms Hypercholestrolimia Continue prescribed medications (rovustatin) Monitor signs symptoms HTN Continue prescribed medications (enalapril, amlodipine) Monitor signs symptoms
[2016-05-21 08:43] LABS: BASO % 0.3 % (0.0-2.0); EOS # 0.1 K/uL (0.0-0.7); EOS % 1.2 % (0.0-4.0); LYMPH # 2.1 K/uL (1.0-4.3); LYMPH % 38.5 % (20.0-40.0); MEAN CELL VOLUME 88.3 fL (80.0-94.0); MEAN CORPUSCULAR HEMOGLOBIN 28.7 pg (27.0-31.0); MEAN CORPUSCULAR HGB CONC 32.5 g/dL (33.0-37.0); MEAN PLATELET VOLUME 8.3 fL (7.2-11.7); MONO # 0.8 K/uL (0.0-0.8); MONO % 13.8 % (0.0-10.0); WHITE BLOOD COUNT 5.5 K/uL (4.8-10.8)
[2016-05-21] MEDS: (Novolog) Insulin Aspart, Recombinant 100 u/ml 10 ml vial SC SCH ×7 (08:43→21:10)
[2016-05-21 08:51] LABS: POTASSIUM 4.3 mmol/L (3.6-5.2)
[2016-05-21 08:53] LABS: ALB/GLOB RATIO 1.5 (1.0-2.1); BILIRUBIN,TOTAL 0.6 mg/dL (0.2-1.3); TOTAL PROTEIN 7.3 g/dL (6.3-8.3)
[2016-05-21 08:54] LABS: CALCIUM 8.9 mg/dl (8.6-10.4); MAGNESIUM 1.8 mg/dL (1.6-2.3)
[2016-05-21] MEDS: buPROPion 150 mg/24 Hours XL Tab PO SCH (09:59)
--- NOTE | 2016-05-21 10:17 | PCM.PYCHPN ---
Psychiatric Progress Note - Psychiatric Progress Note Patient seen today, length of contact: 19 min Patient Chief Complaint: i am still hearing voices Problems Identified/Issues Discussed: Patient seen and evaluated, chart reviewed and discussed with the nurse. As per staff patient remained delusional, paranoid and suspicious. He is pacing back and forth in the hallways and looking everyone suspiciously. Pt. remained disorganized and internally preoccupied. He appears disheveled and is not taking care of his ADLs. His is taking medication and denies any side effects. Pt. keeps to himself and doesnt engage in socializing. Medical Problems: DM Hypercholestrolimia HTN Medication Change: Yes (Stop Olanzapine, Start Haldol) Medical Record Reviewed: Yes Mental Status Examination - Cognitive Function Orientation: Person, Place, Situation, Time Memory: Intact Attention: Poor Concentration: Poor Association: Loose Fund of Knowledge: Poor - Mood Mood: Depressed, Anxious - Affect Affect: Constricted, Depressed - Speech Speech: Soft - Formal Thought Process Formal Thought Process: Hallucinations, Delusions, Paranoia, Loosening of associations - Suicidal Ideation Suicidal Ideation: No - Homicidal Ideation Homicidal Ideation: No Goal/Treatment Plan - Goal/Treatment Plan Need for Continued Stay: Discharge may exacerbated symptoms, Severe functional impairment Progress Toward Problem(s) and Goals/Treatment Plan: Schizoaffective disorder depressed type CBT Psychoeducation Supportive therapy, group therapy, individual therapy D/C Olanzapine 10 mg by mouth twice a day Start Haldol 5 mg PO BID Neurontin 300 mg by mouth 2 times a day Trazodone 50 mg by mouth daily at bedtime Wellbutrin 300 mg by mouth daily DM Continue prescribed medications (insulin, sitagleptin, glimipride) Monitor signs symptoms Hypercholestrolimia Continue prescribed medications (rovustatin) Monitor signs symptoms HTN Continue prescribed medications (enalapril, amlodipine) Monitor signs symptoms - Smoking Cessation Smoking Cessation Initiated: No
--- NOTE | 2016-05-21 11:05 | CP.PCM.PN ---
<Almaz Herrera - Last Filed: 05/21/16 11:03> Subjective - Date & Time of Evaluation Date of Evaluation: 05/21/16 Time of Evaluation: 10:20 - Subjective Subjective: Internal medicine progress note for Hospitalist service- Almaz Herrera, PGY-1 Pt S & E at bedside. Pt reports feeling about the same, no improvement in fatigue, still moving bowels, eating ok, sleeping ok. Denies N/V/F/C, SOB, CP, abdominal pain, other complaints. Objective - Vital Signs/Intake and Output Vital Signs (last 24 hours): Temp Pulse Resp BP Pulse Ox 97.4 F L 66 18 110/63 98 05/21/16 07:42 05/21/16 07:42 05/21/16 07:42 05/21/16 09:58 05/18/16 02:12 - Medications Medications: Current Medications Amlodipine Besylate (Norvasc) 5 mg PO BID [facility] Last Admin: 05/21/16 09:58 Dose: 5 mg Benztropine Mesylate (Cogentin) 1 mg PO BID [facility] Bupropion HCl (Wellbutrin Xl) 300 mg PO DAILY [facility] Last Admin: 05/21/16 09:59 Dose: 300 mg Enalapril Maleate (Vasotec) 5 mg PO DAILY [facility] Last Admin: 05/21/16 09:58 Dose: 5 mg Famotidine (Pepcid) 20 mg PO DAILY [facility] Last Admin: 05/21/16 09:58 Dose: 20 mg Gabapentin (Neurontin) 300 mg PO BID [facility] Last Admin: 05/21/16 09:58 Dose: 300 mg Glimepiride (Amaryl) 1 mg PO DAILY [facility] Last Admin: 05/21/16 09:59 Dose: 1 mg Haloperidol (Haldol) 5 mg PO Q6 PRN PRN Reason: Agitation Last Admin: 05/18/16 14:15 Dose: 5 mg Haloperidol (Haldol) 5 mg PO BID [facility] Hydroxyzine HCl (Atarax) 25 mg PO Q6 PRN PRN Reason: Anxiety Last Admin: 05/20/16 16:19 Dose: 25 mg Insulin Aspart (Novolog) 8 unit SC AC [facility] Insulin Aspart (Novolog) 0 unit SC ACHS [facility] PRN Reason: Protocol Insulin Glargine (Lantus) 30 unit SC HS [facility] Lorazepam (Ativan) 1 mg PO Q8 PRN PRN Reason: Anxiety Last Admin: 05/21/16 09:59 Dose: 1 mg Mycophenolate Mofetil (Cellcept Cap) 750 mg PO BID [facility] Last Admin: 05/21/16 10:44 Dose: 750 mg Prednisone (Prednisone Tab) 5 mg PO DAILY [facility] Last Admin: 05/21/16 09:59 Dose: 5 mg Rosuvastatin Calcium (Crestor) 5 mg PO [facility] Last Admin: 05/20/16 21:38 Dose: 5 mg Sitagliptin Phosphate (Januvia) 25 mg PO DAILY [facility] Last Admin: 05/19/16 10:44 Dose: 25 mg Tacrolimus (Prograf Cap) 2 mg PO QAM [facility] Last Admin: 05/21/16 10:00 Dose: 2 mg Tacrolimus (Prograf Cap) 1.5 mg PO HS [facility] Last Admin: 05/20/16 21:43 Dose: 1.5 mg Trazodone HCl (Desyrel) 50 mg PO [facility] Last Admin: 05/20/16 21:38 Dose: 50 mg - Labs Labs: 05/21/16 08:38 05/21/16 08:38 - Constitutional Appears: Non-toxic, No Acute Distress - Head Exam Head Exam: ATRAUMATIC, NORMAL INSPECTION, NORMOCEPHALIC - Eye Exam Eye Exam: EOMI, Normal appearance, PERRL Pupil Exam: NORMAL ACCOMODATION, PERRL - ENT Exam ENT Exam: Mucous Membranes Moist, Normal Exam - Neck Exam Neck Exam: Full ROM, Normal Inspection - Respiratory Exam Respiratory Exam: Clear to Ausculation Bilateral, NORMAL BREATHING PATTERN - Cardiovascular Exam Cardiovascular Exam: REGULAR RHYTHM, +S1, +S2 - GI/Abdominal Exam GI & Abdominal Exam: Soft, Normal Bowel Sounds. absent: Tenderness - Extremities Exam Extremities Exam: Normal Inspection. absent: Pedal Edema - Back Exam Back Exam: Full ROM, NORMAL INSPECTION - Neurological Exam Neurological Exam: Alert, Awake, CN II-XII Intact, Oriented x3 - Psychiatric Exam Psychiatric exam: Normal Affect, Normal Mood - Skin Skin Exam: Dry, Intact, Normal Color, Warm Assessment and Plan - Assessment and Plan (Free Text) Assessment: Diabetes HgbA1c 12.1 BS now 219 Cont home medications: Glimepiride 1mg po daily, Lantus 26 Units HS increased to 30 Units Started pt on ISS AcHS Neurontin 300mg po bid Januvia 25mg po daily- holding Started Short acting insulin 6 units AC, increased to 8 Units with meals -instructions to hold if pt does not eat or decrease by 1/2 if pt only eats 1/2 meals Accucheck RISS scale changed Diabetic Diet Monitor Hx Kidney transplant 2002 Tacrolimus 1.5mg po hs Tacrolimus 2mg po qam Prednisone 5mg po daily Cellcept 500mg po q12 Hypertension BP 126/84 Cont Norvasc 5mg po daily Cont Enalapril 5mg po daily f/u EKG TSH 0.43- low Free T4 1.07 Hypercholesterolemia Lipid panel TG 85, Chol 121, LDL 46, HDl 49 Cont Crestor 5mg PO QHS Depression and suicidal ideation Managed as per psych Schizophrenia Managed as per psych Multi drug abuse Managed as per psych PPX Pepcid 20mg po daily Patient is ambulating- no SCDs on psych floor Diabetic Diet Dispo: mgmt as per psych Cont current medical mgmt Ambulate Montior lytes & blood sugar DW attending <Juan C Miles - Last Filed: 07/01/16 15:11> Objective - Vital Signs/Intake and Output Vital Signs (last 24 hours): Temp Pulse Resp BP Pulse Ox 97.8 F 99 H 20 101/71 98 05/29/16 11:01 05/29/16 11:01 05/29/16 11:01 05/29/16 11:01 05/18/16 02:12 - Labs Labs: 05/26/16 06:49 05/26/16 06:49 Attending/Attestation - Attestation I have personally seen and examined this patient.: Yes I have fully participated in the care of the patient.: Yes I have reviewed all pertinent clinical information, including history, physical exam and plan: Yes Notes (Text): Patient seen and examined with the resident. Agree with the resident's evaluation, assessment and plan. Diabetes HgbA1c 12.1 BS now 219 Cont home medications: Glimepiride 1mg po daily, Lantus 26 Units HS increased to 30 Units Started pt on ISS AcHS Neurontin 300mg po bid Januvia 25mg po daily- holding Started Short acting insulin 6 units AC, increased to 8 Units with meals -instructions to hold if pt does not eat or decrease by 1/2 if pt only eats 1/2 meals Accucheck RISS scale changed Diabetic Diet Monitor Hx Kidney transplant 2002 Tacrolimus 1.5mg po hs Tacrolimus 2mg po qam Prednisone 5mg po daily Cellcept 500mg po q12 Hypertension BP 126/84 Cont Norvasc 5mg po daily Cont Enalapril 5mg po daily f/u EKG TSH 0.43- low Free T4 1.07
[2016-05-21] MEDS: (Lantus) Insulin Glargine, Recombinant SC SCH (21:17)
[2016-05-22 08:14] LABS: BASO % 0.3 % (0.0-2.0); EOS # 0.1 K/uL (0.0-0.7); EOS % 1.3 % (0.0-4.0); HEMATOCRIT 34.9 % (35.0-51.0); LYMPH # 1.4 K/uL (1.0-4.3); LYMPH % 26.3 % (20.0-40.0); MEAN CELL VOLUME 87.8 fL (80.0-94.0); MEAN PLATELET VOLUME 8.4 fL (7.2-11.7); MONO # 0.7 K/uL (0.0-0.8); MONO % 13.6 % (0.0-10.0); WHITE BLOOD COUNT 5.2 K/uL (4.8-10.8)
[2016-05-22 08:24] LABS: CHLORIDE 100 mmol/L (98-107)
[2016-05-22 08:26] LABS: POTASSIUM 4.1 mmol/L (3.6-5.2); SODIUM 138 mmol/L (132-148)
[2016-05-22 08:28] LABS: ALB/GLOB RATIO 1.4 (1.0-2.1); ALKALINE PHOSPHATASE 70 U/L (38-126); ALT/SGPT 47 U/L (21-72); AST/SGOT 31 U/L (17-59); BILIRUBIN,TOTAL 0.5 mg/dL (0.2-1.3); BLOOD UREA NITROGEN 19 mg/dL (9-20); CARBON DIOXIDE 25 mmol/L (22-30); GFR AFRICAN-AMERICAN > 60; GLUCOSE,RANDOM 279 mg/dL (75-110); TOTAL PROTEIN 6.8 g/dL (6.3-8.3)
[2016-05-22 08:29] LABS: CALCIUM 9.2 mg/dl (8.6-10.4); MAGNESIUM 1.6 mg/dL (1.6-2.3); PHOSPHOROUS 3.3 mg/dL (2.5-4.5)
[2016-05-22] MEDS: (Novolog) Insulin Aspart, Recombinant 100 u/ml 10 ml vial SC SCH ×7 (08:58→23:09)
[2016-05-22] MEDS: buPROPion 150 mg/24 Hours XL Tab PO SCH (11:00)
--- NOTE | 2016-05-22 12:49 | CP.PCM.PN ---
<Almaz Herrera - Last Filed: 05/22/16 12:47> Subjective - Date & Time of Evaluation Date of Evaluation: 05/22/16 Time of Evaluation: 07:45 - Subjective Subjective: Internal medicine progress note for Hospitalist service- Almaz Herrera, PGY-1 Pt S & E at bedside. Pt continues to feel about the same, now reports increased anxiety- takes Xanax at home, still moving bowels, eating ok, sleeping ok. Denies N/V/F/C, SOB, CP, abdominal pain, other complaints. Objective - Vital Signs/Intake and Output Vital Signs (last 24 hours): Temp Pulse Resp BP Pulse Ox 97.8 F 106 H 19 120/79 98 05/22/16 07:50 05/22/16 07:50 05/22/16 07:50 05/22/16 10:57 05/18/16 02:12 - Medications Medications: Current Medications Amlodipine Besylate (Norvasc) 5 mg PO BID [facility] Last Admin: 05/22/16 10:56 Dose: 5 mg Benztropine Mesylate (Cogentin) 1 mg PO BID [facility] Last Admin: 05/22/16 10:57 Dose: 1 mg Bupropion HCl (Wellbutrin Xl) 300 mg PO DAILY [facility] Last Admin: 05/22/16 11:00 Dose: 300 mg Enalapril Maleate (Vasotec) 5 mg PO DAILY [facility] Last Admin: 05/22/16 10:57 Dose: 5 mg Famotidine (Pepcid) 20 mg PO DAILY [facility] Last Admin: 05/22/16 10:57 Dose: 20 mg Gabapentin (Neurontin) 300 mg PO BID [facility] Last Admin: 05/22/16 10:58 Dose: 300 mg Glimepiride (Amaryl) 2 mg PO DAILY [facility] Haloperidol (Haldol) 5 mg PO Q6 PRN PRN Reason: Agitation Last Admin: 05/18/16 14:15 Dose: 5 mg Haloperidol (Haldol) 5 mg PO BID [facility] Last Admin: 05/22/16 10:58 Dose: 5 mg Hydroxyzine HCl (Atarax) 25 mg PO Q6 PRN PRN Reason: Anxiety Last Admin: 05/20/16 16:19 Dose: 25 mg Insulin Aspart (Novolog) 8 unit SC [facility] Last Admin: 05/22/16 08:58 Dose: 8 unit Insulin Aspart (Novolog) 0 unit SC [facility] PRN Reason: Protocol Last Admin: 05/22/16 08:59 Dose: 3 unit Insulin Glargine (Lantus) 30 unit SC [facility] Last Admin: 05/21/16 21:17 Dose: 30 units Lorazepam (Ativan) 1 mg PO Q8 PRN PRN Reason: Anxiety Last Admin: 05/22/16 10:56 Dose: 1 mg Mycophenolate Mofetil (Cellcept Cap) 750 mg PO BID [facility] Last Admin: 05/22/16 10:57 Dose: 750 mg Prednisone (Prednisone Tab) 5 mg PO DAILY [facility] Last Admin: 05/22/16 10:57 Dose: 5 mg Rosuvastatin Calcium (Crestor) 5 mg PO [facility] Last Admin: 05/21/16 21:17 Dose: 5 mg Sitagliptin Phosphate (Januvia) 25 mg PO DAILY [facility] Last Admin: 05/19/16 10:44 Dose: 25 mg Tacrolimus (Prograf Cap) 2 mg PO [facility] Last Admin: 05/22/16 10:57 Dose: 2 mg Tacrolimus (Prograf Cap) 1.5 mg PO [facility] Last Admin: 05/20/16 21:43 Dose: 1.5 mg Trazodone HCl (Desyrel) 50 mg PO [facility] Last Admin: 05/21/16 21:17 Dose: 50 mg - Labs Labs: 05/22/16 08:09 05/22/16 08:09 - Constitutional Appears: Non-toxic, No Acute Distress - Head Exam Head Exam: ATRAUMATIC, NORMAL INSPECTION, NORMOCEPHALIC - Eye Exam Eye Exam: EOMI, Normal appearance, PERRL Pupil Exam: NORMAL ACCOMODATION, PERRL - ENT Exam ENT Exam: Mucous Membranes Moist, Normal Exam - Neck Exam Neck Exam: Full ROM, Normal Inspection - Respiratory Exam Respiratory Exam: Clear to Ausculation Bilateral, NORMAL BREATHING PATTERN. absent: Rales, Rhonchi, Wheezes, Respiratory Distress - Cardiovascular Exam Cardiovascular Exam: REGULAR RHYTHM, +S1, +S2 - GI/Abdominal Exam GI & Abdominal Exam: Soft, Normal Bowel Sounds. absent: Tenderness - Extremities Exam Extremities Exam: Full ROM, Normal Inspection. absent: Pedal Edema, Tenderness - Back Exam Back Exam: Full ROM, NORMAL INSPECTION - Neurological Exam Neurological Exam: Alert, Awake, CN II-XII Intact, Oriented x3 - Psychiatric Exam Psychiatric exam: Anxious, Normal Affect - Skin Skin Exam: Dry, Intact, Normal Color, Warm Assessment and Plan - Assessment and Plan (Free Text) Assessment: Diabetes HgbA1c 12.1 BS now 115 Cont home medications: Glimepiride 1mg po daily- home dose is 4mg BID- increased to 2mg PO daily Cont Lantus 30 Units HS Cont ISS AcHS Neurontin 300mg po bid Januvia 25mg po daily- holding Cont 8 Units with meals w/holding parameters -instructions to hold if pt does not eat or decrease by 1/2 if pt only eats 1 /2 meals Accucheck Diabetic Diet Monitor Hx Kidney transplant 2002 Tacrolimus 1.5mg po hs Tacrolimus 2mg po qam Prednisone 5mg po daily Cellcept 500mg po q12 Hypertension BP 112/76 Cont Norvasc 5mg po daily Cont Enalapril 5mg po daily TSH 0.43- low Free T4 1.07 Hypercholesterolemia Lipid panel TG 85, Chol 121, LDL 46, HDl 49 Cont Crestor 5mg PO QHS Depression and suicidal ideation Managed as per psych Schizophrenia Managed as per psych Multi drug abuse Managed as per psych PPX Pepcid 20mg po daily Patient is ambulating- no SCDs on psych floor Diabetic Diet Dispo: mgmt as per psych Cont current medical mgmt Ambulate FU labs Montior lytes & blood sugar DW attending <Giancarlo Griffiths - Last Filed: 05/22/16 15:54> Objective - Vital Signs/Intake and Output Vital Signs (last 24 hours): Temp Pulse Resp BP Pulse Ox 97.8 F 106 H 19 120/79 98 05/22/16 07:50 05/22/16 07:50 05/22/16 07:50 05/22/16 10:57 05/18/16 02:12 - Medications Medications: Current Medications Amlodipine Besylate (Norvasc) 5 mg PO BID [facility] Last Admin: 05/22/16 10:56 Dose: 5 mg Benztropine Mesylate (Cogentin) 1 mg PO BID [facility] Last Admin: 05/22/16 10:57 Dose: 1 mg Bupropion HCl (Wellbutrin Xl) 300 mg PO DAILY [facility] Last Admin: 05/22/16 11:00 Dose: 300 mg Enalapril Maleate (Vasotec) 5 mg PO DAILY [facility] Last Admin: 05/22/16 10:57 Dose: 5 mg Famotidine (Pepcid) 20 mg PO DAILY [facility] Last Admin: 05/22/16 10:57 Dose: 20 mg Gabapentin (Neurontin) 300 mg PO BID [facility] Last Admin: 05/22/16 10:58 Dose: 300 mg Glimepiride (Amaryl) 2 mg PO DAILY [facility] Haloperidol (Haldol) 5 mg PO Q6 PRN PRN Reason: Agitation Last Admin: 05/18/16 14:15 Dose: 5 mg Haloperidol (Haldol) 10 mg PO BID [facility] Hydroxyzine HCl (Atarax) 25 mg PO Q6 PRN PRN Reason: Anxiety Last Admin: 05/20/16 16:19 Dose: 25 mg Insulin Aspart (Novolog) 8 unit SC AC [facility] Last Admin: 05/22/16 13:13 Dose: Not Given Insulin Aspart (Novolog) 0 unit SC ACHS [facility] PRN Reason: Protocol Last Admin: 05/22/16 13:13 Dose: Not Given Insulin Glargine (Lantus) 30 unit SC [facility] Last Admin: 05/21/16 21:17 Dose: 30 units Lorazepam (Ativan) 1 mg PO Q8 PRN PRN Reason: Anxiety Last Admin: 05/22/16 10:56 Dose: 1 mg Mycophenolate Mofetil (Cellcept Cap) 750 mg PO BID [facility] Last Admin: 05/22/16 10:57 Dose: 750 mg Prednisone (Prednisone Tab) 5 mg PO DAILY [facility] Last Admin: 05/22/16 10:57 Dose: 5 mg Rosuvastatin Calcium (Crestor) 5 mg PO HS [facility] Last Admin: 05/21/16 21:17 Dose: 5 mg Sitagliptin Phosphate (Januvia) 25 mg PO DAILY [facility] Last Admin: 05/19/16 10:44 Dose: 25 mg [facility] Last Admin: 05/22/16 10:57 Dose: 2 mg Tacrolimus (Prograf Cap) 1.5 mg PO HS [facility] Last Admin: 05/20/16 21:43 Dose: 1.5 mg Trazodone HCl (Desyrel) 50 mg PO HS [facility] Last Admin: 05/21/16 21:17 Dose: 50 mg - Labs Labs: 05/22/16 08:09 05/22/16 08:09 Attending/Attestation - Attestation I have personally seen and examined this patient.: Yes I have fully participated in the care of the patient.: Yes I have reviewed all pertinent clinical information, including history, physical exam and plan: Yes Notes (Text): 05/22/16 15:52 Patient was seen and examined at bedside with the resident Patient is awake alert and not in any acute distress Patient's blood sugar is still high We will titrate the medication for optimal sugar control Patient's home medication reviewed Patient takes a higher dose of glimepiride we will increase the dose and monitor the response May need to increase the dose further if there is persistent hypoglycemia Discussed the plan of care with the resident and agree with the above history and physical and assessment/plan by the residents
--- NOTE | 2016-05-22 14:52 | PCM.PYCHPN ---
Psychiatric Progress Note - Psychiatric Progress Note Patient seen today, length of contact: 19 min Patient Chief Complaint: i'm feeling better Problems Identified/Issues Discussed: Patient seen and evaluated, chart reviewed and discussed with the nurse. As per staff, yesterday patient stayed up all night standing at his door and appeared extremely disorganized and internally preoccupied. He was smiling and appeared delusional, paranoid and bizarre. When asked why is he smiling, he mentioned that he is hearing voices to hurt himself. He reports of poor sleep and poor appetite. However patient reports that he is getting better. His is taking medication and denies any side effects. Supportive therapy was given Medical Problems: DM Hypercholestrolimia HTN Medication Change: Yes (Increase Haldol) Medical Record Reviewed: Yes Mental Status Examination - Cognitive Function Orientation: Person, Place, Situation, Time Memory: Intact Attention: Poor Concentration: Poor Association: Loose Fund of Knowledge: Poor - Mood Mood: Depressed, Anxious - Affect Affect: Constricted, Depressed - Speech Speech: Soft - Formal Thought Process Formal Thought Process: Hallucinations, Delusions, Paranoia, Loosening of associations - Suicidal Ideation Suicidal Ideation: No - Homicidal Ideation Homicidal Ideation: No Goal/Treatment Plan - Goal/Treatment Plan Need for Continued Stay: Discharge may exacerbated symptoms, Severe functional impairment Progress Toward Problem(s) and Goals/Treatment Plan: Schizoaffective disorder depressed type CBT Psychoeducation Supportive therapy, group therapy, individual therapy Increase Haldol to 10 mg PO BID Neurontin 300 mg by mouth 2 times a day Trazodone 50 mg by mouth daily at bedtime Wellbutrin 300 mg by mouth daily DM Continue prescribed medications (insulin, sitagleptin, glimipride) Monitor signs symptoms Hypercholestrolimia Continue prescribed medications (rovustatin) Monitor signs symptoms HTN Continue prescribed medications (enalapril, amlodipine) Monitor signs symptoms - Smoking Cessation Smoking Cessation Initiated: No
[2016-05-22] MEDS: (Lantus) Insulin Glargine, Recombinant SC SCH (23:12)
[2016-05-23] MEDS: (Novolog) Insulin Aspart, Recombinant 100 u/ml 10 ml vial SC SCH ×7 (09:26→21:46)
--- NOTE | 2016-05-23 09:38 | PCM.PYCHPN ---
Psychiatric Progress Note - Psychiatric Progress Note Patient seen today, length of contact: 17 min Patient Chief Complaint: i am still hearing voices Problems Identified/Issues Discussed: Patient seen and evaluated, chart reviewed and discussed with the nurse. As per staff patient remained disorganized, delusional and paranoid. He remained suspicious and was seen laughing inappropriately. Upon questioning he reports depressed mood and reports hearing voices. However he remained redirectable and calm and cooperative Medical Problems: DM Hypercholestrolimia HTN Medication Change: Yes (Increase olanzapine) Medical Record Reviewed: Yes Mental Status Examination - Cognitive Function Orientation: Person, Place, Situation, Time Memory: Intact Attention: Poor Concentration: Poor Association: Loose Fund of Knowledge: Poor - Mood Mood: Depressed, Anxious - Affect Affect: Constricted, Depressed - Speech Speech: Soft - Formal Thought Process Formal Thought Process: Hallucinations, Delusions, Paranoia, Loosening of associations - Suicidal Ideation Suicidal Ideation: No - Homicidal Ideation Homicidal Ideation: No Goal/Treatment Plan - Goal/Treatment Plan Need for Continued Stay: Discharge may exacerbated symptoms, Severe functional impairment Progress Toward Problem(s) and Goals/Treatment Plan: Schizoaffective disorder depressed type CBT Psychoeducation Supportive therapy, group therapy, individual therapy Olanzapine 10 mg by mouth twice a day Neurontin 300 mg by mouth 2 times a day Trazodone 50 mg by mouth daily at bedtime Wellbutrin 300 mg by mouth daily DM Continue prescribed medications (insulin, sitagleptin, glimipride) Monitor signs symptoms Hypercholestrolimia Continue prescribed medications (rovustatin) Monitor signs symptoms HTN Continue prescribed medications (enalapril, amlodipine) Monitor signs symptoms - Smoking Cessation Smoking Cessation Initiated: No
[2016-05-23] MEDS: buPROPion 150 mg/24 Hours XL Tab PO SCH (09:47)
--- NOTE | 2016-05-23 10:46 | CP.PCM.PN ---
<Almaz Herrera - Last Filed: 05/23/16 15:59> Subjective - Date & Time of Evaluation Date of Evaluation: 05/23/16 Time of Evaluation: 07:50 - Subjective Subjective: Internal medicine progress note for Hospitalist service- Almaz Herrera, PGY-1 Pt S & E at bedside. Nurses report accucheck BS last night 306, with resolution of hyperglycemia in AM w/ BS 86, pt reports feeling about the same - was cold overnight. Admits to no BM in 2 days, palpitations, and tremors/anxiety, still hearing voices but denies SI and HI. Denies F/VALIENTE/N/V/D/SOB/Cough/Numbness/Tingling. Objective - Vital Signs/Intake and Output Vital Signs (last 24 hours): Temp Pulse Resp BP Pulse Ox 97.8 F 109 H 19 111/74 98 05/22/16 07:50 05/22/16 16:40 05/22/16 07:50 05/23/16 09:48 05/18/16 02:12 - Medications Medications: Current Medications Amlodipine Besylate (Norvasc) 5 mg PO BID [facility] Last Admin: 05/23/16 09:48 Dose: 5 mg Benztropine Mesylate (Cogentin) 1 mg PO BID [facility] Last Admin: 05/23/16 09:48 Dose: 1 mg Bupropion HCl (Wellbutrin Xl) 300 mg PO DAILY [facility] Last Admin: 05/23/16 09:47 Dose: 300 mg Enalapril Maleate (Vasotec) 5 mg PO DAILY [facility] Last Admin: 05/23/16 09:48 Dose: 5 mg Famotidine (Pepcid) 20 mg PO DAILY [facility] Last Admin: 05/23/16 09:47 Dose: 20 mg Gabapentin (Neurontin) 300 mg PO BID [facility] Last Admin: 05/23/16 09:47 Dose: 300 mg Glimepiride (Amaryl) 2 mg PO DAILY [facility] Last Admin: 05/23/16 09:49 Dose: 2 mg Haloperidol (Haldol) 5 mg PO Q6 PRN PRN Reason: Agitation Last Admin: 05/18/16 14:15 Dose: 5 mg Haloperidol (Haldol) 10 mg PO BID [facility] Last Admin: 05/23/16 09:48 Dose: 10 mg Hydroxyzine HCl (Atarax) 25 mg PO Q6 PRN PRN Reason: Anxiety Last Admin: 05/22/16 17:28 Dose: 25 mg Insulin Aspart (Novolog) 8 unit SC AC [facility] Last Admin: 05/23/16 09:27 Dose: Not Given Insulin Aspart (Novolog) 0 unit SC ACHS [facility] PRN Reason: Protocol Last Admin: 05/23/16 09:26 Dose: Not Given Insulin Glargine (Lantus) 30 unit SC HS [facility] Last Admin: 05/22/16 23:12 Dose: 30 units Lorazepam (Ativan) 1 mg PO Q8 PRN PRN Reason: Anxiety Last Admin: 05/22/16 22:03 Dose: 1 mg Mycophenolate Mofetil (Cellcept Cap) 750 mg PO BID [facility] Last Admin: 05/23/16 09:49 Dose: 750 mg Prednisone (Prednisone Tab) 5 mg PO DAILY [facility] Last Admin: 05/23/16 09:49 Dose: 5 mg Rosuvastatin Calcium (Crestor) 5 mg PO [facility] Last Admin: 05/22/16 22:04 Dose: 5 mg Sitagliptin Phosphate (Januvia) 25 mg PO DAILY [facility] Last Admin: 05/19/16 10:44 Dose: 25 mg Tacrolimus (Prograf Cap) [facility] [place] Admin: 05/23/16 09:50 Dose: 2 mg Tacrolimus (Prograf Cap) 1.5 mg PO [facility] Last Admin: 05/22/16 22:06 Dose: 1.5 mg Trazodone HCl (Desyrel) 50 mg PO [facility] Last Admin: 05/22/16 22:04 Dose: 50 mg - Labs Labs: 05/22/16 08:09 05/22/16 08:09 - Constitutional Appears: Non-toxic, No Acute Distress - Head Exam Head Exam: ATRAUMATIC, NORMAL INSPECTION, NORMOCEPHALIC - Eye Exam Eye Exam: EOMI, Normal appearance, PERRL Pupil Exam: NORMAL ACCOMODATION, PERRL - ENT Exam ENT Exam: Mucous Membranes Moist, Normal Exam - Neck Exam Neck Exam: Full ROM, Normal Inspection - Respiratory Exam Respiratory Exam: Clear to Ausculation Bilateral, NORMAL BREATHING PATTERN. absent: Rales, Rhonchi, Wheezes, Respiratory Distress - Cardiovascular Exam Cardiovascular Exam: REGULAR RHYTHM, +S1, +S2 - GI/Abdominal Exam GI & Abdominal Exam: Soft, Normal Bowel Sounds. absent: Tenderness - Extremities Exam Extremities Exam: Full ROM, Normal Inspection. absent: Pedal Edema, Tenderness - Back Exam Back Exam: Full ROM, NORMAL INSPECTION - Neurological Exam Neurological Exam: Alert, Awake, CN II-XII Intact, Normal Gait, Oriented x3 - Psychiatric Exam Psychiatric exam: Normal Affect, Normal Mood - Skin Skin Exam: Dry, Intact, Normal Color, Warm Assessment and Plan - Assessment and Plan (Free Text) Assessment: Diabetes HgbA1c 12.1 BS now 86 Cont home medications: Cont Glimepiride 2mg PO daily Lantus 30 Units HS decreased to 28 Units HS Cont ISS AcHS Neurontin 300mg po bid Januvia 25mg po daily- holding Cont 8 Units with meals w/holding parameters -instructions to hold if pt does not eat or decrease by 1/2 if pt only eats 1 /2 meals Accucheck Diabetic Diet Monitor Hx Kidney transplant 2002 Tacrolimus 1.5mg po hs Tacrolimus 2mg po qam Prednisone 5mg po daily Cellcept 500mg po q12 Hypertension BP 111/74 Cont Norvasc 5mg po daily Cont Enalapril 5mg po daily TSH 0.43- low Free T4 1.07 Hypercholesterolemia Lipid panel TG 85, Chol 121, LDL 46, HDl 49 Cont Crestor 5mg PO QHS Depression and suicidal ideation Managed as per psych Schizophrenia Managed as per psych Multi drug abuse Managed as per psych PPX Pepcid 20mg po daily Patient is ambulating- no SCDs on psych floor Diabetic Diet Dispo: mgmt as per psych Cont current medical mgmt Ambulate Labs WNL Low threshold to transfer to med-surg for possible sepsis in light of pt's immunosuppression due to kidney transplant DW attending <Juan C Miles - Last Filed: 07/01/16 15:29> Objective - Vital Signs/Intake and Output Vital Signs (last 24 hours): Temp Pulse Resp BP Pulse Ox 97.8 F 99 H 20 101/71 98 05/29/16 11:01 05/29/16 11:01 05/29/16 11:01 05/29/16 11:01 05/18/16 02:12 - Labs Labs: 05/26/16 06:49 05/26/16 06:49 Attending/Attestation - Attestation I have personally seen and examined this patient.: Yes I have fully participated in the care of the patient.: Yes I have reviewed all pertinent clinical information, including history, physical exam and plan: Yes Notes (Text): Patient seen and examined with the resident. Agree with the resident's evaluation, assessment and plan. Diabetes HgbA1c 12.1 BS now 86 Cont home medications: Cont Glimepiride 2mg PO daily Lantus 30 Units HS decreased to 28 Units HS Cont ISS AcHS Neurontin 300mg po bid Januvia 25mg po daily- holding Cont 8 Units with meals w/holding parameters -instructions to hold if pt does not eat or decrease by 1/2 if pt only eats 1 /2 meals Accucheck Diabetic Diet Monitor Hx Kidney transplant 2002 Tacrolimus 1.5mg po hs Tacrolimus 2mg po qam Prednisone 5mg po daily Cellcept 500mg po q12 Management by psych
[2016-05-23] MEDS ORDERED: (Lantus) Insulin Glargine, Recombinant SC SCH (22:00)
[2016-05-24 08:27] LABS: BASO % 0.2 % (0.0-2.0); EOS # 0.1 K/uL (0.0-0.7); EOS % 1.2 % (0.0-4.0); HEMATOCRIT 32.2 % (35.0-51.0); LYMPH # 1.5 K/uL (1.0-4.3); LYMPH % 21.9 % (20.0-40.0); MEAN CELL VOLUME 87.4 fL (80.0-94.0); MEAN CORPUSCULAR HEMOGLOBIN 28.7 pg (27.0-31.0); MEAN CORPUSCULAR HGB CONC 32.9 g/dL (33.0-37.0); MEAN PLATELET VOLUME 8.7 fL (7.2-11.7); MONO # 0.8 K/uL (0.0-0.8); MONO % 12.1 % (0.0-10.0); RED CELL DISTRIBUTION WIDTH 14.8 % (11.5-14.5); WHITE BLOOD COUNT 6.8 K/uL (4.8-10.8)
[2016-05-24 08:30] LABS: CHLORIDE 99 mmol/L (98-107)
[2016-05-24 08:31] LABS: POTASSIUM 4.1 mmol/L (3.6-5.2); SODIUM 135 mmol/L (132-148)
[2016-05-24] MEDS: (Novolog) Insulin Aspart, Recombinant 100 u/ml 10 ml vial SC SCH ×5 (08:32→21:43)
[2016-05-24 08:33] LABS: ALB/GLOB RATIO 1.3 (1.0-2.1); AST/SGOT 27 U/L (17-59); BILIRUBIN,TOTAL 0.7 mg/dL (0.2-1.3); CARBON DIOXIDE 23 mmol/L (22-30); GFR AFRICAN-AMERICAN > 60; TOTAL PROTEIN 6.3 g/dL (6.3-8.3)
[2016-05-24 08:34] LABS: ALKALINE PHOSPHATASE 57 U/L (38-126); ALT/SGPT 45 U/L (21-72); BLOOD UREA NITROGEN 21 mg/dL (9-20); GLUCOSE,RANDOM 54 mg/dL (75-110); MAGNESIUM 1.8 mg/dL (1.6-2.3); PHOSPHOROUS 5.2 mg/dL (2.5-4.5)
[2016-05-24] MEDS: buPROPion 150 mg/24 Hours XL Tab PO SCH (10:04)
--- NOTE | 2016-05-24 11:18 | PCM.PYCHPN ---
Psychiatric Progress Note - Psychiatric Progress Note Patient seen today, length of contact: 15 min Patient Chief Complaint: i am still hearing voices Problems Identified/Issues Discussed: Patient seen and evaluated, chart reviewed and discussed with the nurse. As per staff, patient was up all night and was pacing back and forth in the hallways and appeared very disorganized and internally preoccupied. Today patient reports voices and smiling inappropriately and looking around suspiciously. He appeared disheveled and unkempt. However he is taking medication and denies any side effects. Medical Problems: DM Hypercholestrolimia HTN Medication Change: Yes (Stop olanzapine, start Haldol) Medical Record Reviewed: Yes Mental Status Examination - Cognitive Function Orientation: Person, Place, Situation, Time Memory: Intact Attention: Poor Concentration: Poor Association: Loose Fund of Knowledge: Poor - Mood Mood: Depressed, Anxious - Affect Affect: Constricted, Depressed - Speech Speech: Soft - Formal Thought Process Formal Thought Process: Hallucinations, Delusions, Paranoia, Loosening of associations - Suicidal Ideation Suicidal Ideation: No - Homicidal Ideation Homicidal Ideation: No Goal/Treatment Plan - Goal/Treatment Plan Need for Continued Stay: Discharge may exacerbated symptoms, Severe functional impairment Progress Toward Problem(s) and Goals/Treatment Plan: Schizoaffective disorder depressed type CBT Psychoeducation Supportive therapy, group therapy, individual therapy Discontinue Olanzapine 10 mg by mouth twice a day Haldol 5 mg by mouth twice a day Neurontin 300 mg by mouth 2 times a day Trazodone 50 mg by mouth daily at bedtime Wellbutrin 300 mg by mouth daily DM Continue prescribed medications (insulin, sitagleptin, glimipride) Monitor signs symptoms Hypercholestrolimia Continue prescribed medications (rovustatin) Monitor signs symptoms HTN Continue prescribed medications (enalapril, amlodipine) Monitor signs symptoms - Smoking Cessation Smoking Cessation Initiated: No
[2016-05-24] MEDS ORDERED: (Novolog Mix 70/30) Insulin Aspart/Insulin Aspar 100 units/ml SC SCH (11:30)
--- NOTE | 2016-05-24 14:49 | CP.PCM.PN ---
<Marlin Muhammad Rogelio - Last Filed: 05/24/16 14:46> Subjective - Date & Time of Evaluation Date of Evaluation: 05/24/16 Time of Evaluation: 09:20 - Subjective Subjective: PGY2 Medicine Note - Dr. Miles's service: Patient seen and examined at bedside this AM. Patient denies fever, chills, dizziness, weakness, vision change, syncope, falls, chest pain, SOB, abdominal pain, nausea, vomiting, diarrhea, constipation, dysuria. Per nursing, patient was not getting insulin coverage or the 8 units with meals because of low glucoses in AMs, but she said she will make sure he gets it today. Objective - Vital Signs/Intake and Output Vital Signs (last 24 hours): Temp Pulse Resp BP Pulse Ox 97.5 F L 77 18 105/73 98 05/24/16 07:48 05/24/16 07:48 05/24/16 07:48 05/24/16 10:08 05/18/16 02:12 - Medications Medications: Current Medications Amlodipine Besylate (Norvasc) 5 mg PO BID [facility] Last Admin: 05/24/16 10:08 Dose: 5 mg Benztropine Mesylate (Cogentin) 1 mg PO BID [facility] Last Admin: 05/24/16 10:04 Dose: 1 mg Bupropion HCl (Wellbutrin Xl) 300 mg PO DAILY [facility] Last Admin: 05/24/16 10:04 Dose: 300 mg Enalapril Maleate (Vasotec) 5 mg PO DAILY [facility] Last Admin: 05/24/16 10:08 Dose: 5 mg Famotidine (Pepcid) 20 mg PO DAILY [facility] Last Admin: 05/24/16 10:03 Dose: 20 mg Gabapentin (Neurontin) 300 mg PO BID [facility] Last Admin: 05/24/16 10:04 Dose: 300 mg Glimepiride (Amaryl) 2 mg PO DAILY [facility] Last Admin: 05/24/16 10:05 Dose: 2 mg Haloperidol (Haldol) 5 mg PO Q6 PRN PRN Reason: Agitation Last Admin: 05/18/16 14:15 Dose: 5 mg Haloperidol (Haldol) 10 mg PO BID [facility] Last Admin: 05/24/16 10:03 Dose: 10 mg Hydroxyzine HCl (Atarax) 25 mg PO Q6 PRN PRN Reason: Anxiety Last Admin: 05/22/16 17:28 Dose: 25 mg Insulin Aspart (Novolog) 0 unit SC ACHS [facility] PRN Reason: Protocol Last Admin: 05/24/16 12:11 Dose: 4 unit Insulin Aspart (Novolog Mix 70/30 (70/30 Units/Ml)) 8 units SC ACBL [facility] Last Admin: 05/24/16 12:10 Dose: 8 units Insulin Glargine (Lantus) 28 unit SC [facility] Last Admin: 05/23/16 23:03 Dose: 28 units Lorazepam (Ativan) 1 mg PO Q8 PRN PRN Reason: Anxiety Last Admin: 05/23/16 23:00 Dose: 1 mg Mycophenolate Mofetil (Cellcept Cap) 750 mg PO BID [facility] Last Admin: 05/24/16 10:06 Dose: 750 mg Prednisone (Prednisone Tab) 5 mg PO DAILY [facility] Last Admin: 05/24/16 10:06 Dose: 5 mg Rosuvastatin Calcium (Crestor) 5 mg PO [facility] Last Admin: 05/23/16 21:35 Dose: 5 mg Sitagliptin Phosphate (Januvia) 25 mg PO DAILY [facility] Last Admin: 05/19/16 10:44 Dose: 25 mg Tacrolimus (Prograf Cap) [facility] [place] Last Admin: 05/24/16 10:07 Dose: 2 mg Tacrolimus (Prograf Cap) 1.5 mg PO [facility] Last Admin: 05/23/16 23:05 Dose: 1.5 mg Trazodone HCl (Desyrel) 50 mg PO [facility] Last Admin: 05/23/16 21:35 Dose: 50 mg - Labs Labs: 05/24/16 08:14 05/24/16 08:14 - Constitutional Appears: Non-toxic, No Acute Distress - Head Exam Head Exam: NORMAL INSPECTION - Eye Exam Eye Exam: EOMI - ENT Exam ENT Exam: Mucous Membranes Moist - Respiratory Exam Respiratory Exam: Clear to Ausculation Bilateral, NORMAL BREATHING PATTERN. absent: Rales, Rhonchi, Wheezes - Cardiovascular Exam Cardiovascular Exam: REGULAR RHYTHM, +S1, +S2. absent: Gallop, Rubs, Murmur - GI/Abdominal Exam GI & Abdominal Exam: Soft, Normal Bowel Sounds. absent: Distended, Firm, Tenderness - Extremities Exam Extremities Exam: Normal Capillary Refill. absent: Pedal Edema - Neurological Exam Neurological Exam: Alert, Oriented x3 - Psychiatric Exam Psychiatric exam: Flat Affect, Normal Mood - Skin Skin Exam: Normal Color, Warm Assessment and Plan - Assessment and Plan (Free Text) Assessment: Diabetes HgbA1c 12.1 blood sugars low in AMs (lowest was 54) High in afternoon. Decreasing Lantus from 28U SC HS to 26U SC HS Insulin Aspart 8U SC ACBL (stopped this with dinner) with holding parameters Cont home medications: Cont Glimepiride 2mg PO daily Cont ISS ACHS Neurontin 300mg po bid Januvia 25mg po daily- holding Accucheck Diabetic Diet Monitor Hx Kidney transplant 2002 Tacrolimus 1.5mg po hs Tacrolimus 2mg po qam Prednisone 5mg po daily Cellcept 500mg po q12 Hypertension BP 105/73 Consistently on low side Stop Norvasc 5mg po daily Cont Enalapril 5mg po daily TSH 0.43- low Free T4 1.07 Hypercholesterolemia Lipid panel TG 85, Chol 121, LDL 46, HDl 49 Cont Crestor 5mg PO QHS Depression and suicidal ideation Managed as per psych Schizophrenia Managed as per psych Multi drug abuse Managed as per psych PPX Pepcid 20mg po daily Patient is ambulating- no SCDs on psych floor Diabetic Diet Dispo: mgmt as per psych Cont current medical mgmt Ambulate Labs WNL Low threshold to transfer to med-surg for possible sepsis in light of pt's immunosuppression due to kidney transplant <Juan C Miles - Last Filed: 07/01/16 15:37> Objective - Vital Signs/Intake and Output Vital Signs (last 24 hours): Temp Pulse Resp BP Pulse Ox 97.8 F 99 H 20 101/71 98 05/29/16 11:01 05/29/16 11:01 05/29/16 11:01 05/29/16 11:01 05/18/16 02:12 - Labs Labs: 05/26/16 06:49 05/26/16 06:49 Attending/Attestation - Attestation I have personally seen and examined this patient.: Yes I have fully participated in the care of the patient.: Yes I have reviewed all pertinent clinical information, including history, physical exam and plan: Yes Notes (Text): Patient seen and examined with the resident. Agree with the resident's evaluation, assessment and plan. Diabetes HgbA1c 12.1 blood sugars low in AMs (lowest was 54) High in afternoon. Decreasing Lantus from 28U SC HS to 26U SC HS Insulin Aspart 8U SC ACBL (stopped this with dinner) with holding parameters Cont home medications: Cont Glimepiride 2mg PO daily Cont ISS ACHS Neurontin 300mg po bid Januvia 25mg po daily- holding Accucheck Diabetic Diet Monitor Hx Kidney transplant 2002 Tacrolimus 1.5mg po hs Tacrolimus 2mg po qam Prednisone 5mg po daily Cellcept 500mg po q12
[2016-05-24] MEDS: (Lantus) Insulin Glargine, Recombinant SC SCH (21:42)
[2016-05-25] MEDS ORDERED: (Novolog) Insulin Aspart, Recombinant 100 u/ml 10 ml vial SC SCH (07:30)
[2016-05-25] MEDS: (Novolog) Insulin Aspart, Recombinant 100 u/ml 10 ml vial SC SCH ×4 (08:15→21:41)
[2016-05-25] MEDS: (Novolog Mix 70/30) Insulin Aspart/Insulin Aspar 100 units/ml SC SCH ×2 (09:02→11:53)
[2016-05-25] MEDS: buPROPion 150 mg/24 Hours XL Tab PO SCH (09:53)
--- NOTE | 2016-05-25 13:49 | CP.PCM.PN ---
<Marlin Muhammad - Last Filed: 05/25/16 13:47> Subjective - Date & Time of Evaluation Date of Evaluation: 05/25/16 Time of Evaluation: 08:00 - Subjective Subjective: PGY2 Medicine Note - Dr. Miles's service: Patient seen and examined at bedside this AM. Patient denies fever, chills, dizziness, weakness, vision change, syncope, falls, chest pain, SOB, abdominal pain, nausea, vomiting, diarrhea, constipation, dysuria. Objective - Vital Signs/Intake and Output Vital Signs (last 24 hours): Temp Pulse Resp BP Pulse Ox 97.0 F L 69 20 118/80 98 05/25/16 07:20 05/25/16 07:20 05/25/16 07:20 05/25/16 09:52 05/18/16 02:12 - Medications Medications: Current Medications Benztropine Mesylate (Cogentin) 1 mg PO BID [facility] Last Admin: 05/25/16 09:52 Dose: 1 mg Bupropion HCl (Wellbutrin Xl) 300 mg PO DAILY [facility] Last Admin: 05/25/16 09:53 Dose: 300 mg Enalapril Maleate (Vasotec) 5 mg PO DAILY [facility] Last Admin: 05/25/16 09:52 Dose: 5 mg Famotidine (Pepcid) 20 mg PO DAILY [facility] Last Admin: 05/25/16 09:52 Dose: 20 mg Gabapentin (Neurontin) 300 mg PO BID [facility] Last Admin: 05/25/16 09:52 Dose: 300 mg Glimepiride (Amaryl) 2 mg PO DAILY [facility] Last Admin: 05/25/16 09:53 Dose: 2 mg Haloperidol (Haldol) 5 mg PO Q6 PRN PRN Reason: Agitation Last Admin: 05/25/16 01:19 Dose: 5 mg Haloperidol (Haldol) 10 mg PO BID [facility] Last Admin: 05/25/16 09:52 Dose: 10 mg Hydroxyzine HCl (Atarax) 25 mg PO Q6 PRN PRN Reason: Anxiety Last Admin: 05/24/16 20:07 Dose: 25 mg Insulin Aspart (Novolog) 0 unit SC ACHS [facility] PRN Reason: Protocol Last Admin: 05/25/16 11:51 Dose: Not Given Insulin Aspart (Novolog Mix 70/30 (70/30 Units/Ml)) 10 units SC ACBL [facility] Last Admin: 05/25/16 11:53 Dose: 10 units Insulin Glargine (Lantus) 26 unit SC HS [facility] Last Admin: 05/24/16 21:42 Dose: 26 units Lorazepam (Ativan) 1 mg PO Q8 PRN PRN Reason: Anxiety Last Admin: 05/25/16 01:20 Dose: 1 mg Mycophenolate Mofetil (Cellcept Cap) 750 mg PO BID [facility] Last Admin: 05/25/16 10:01 Dose: 750 mg Prednisone (Prednisone Tab) 5 mg PO DAILY [facility] Last Admin: 05/25/16 09:54 Dose: 5 mg Rosuvastatin Calcium (Crestor) 5 mg PO [facility] Last Admin: 05/24/16 21:33 Dose: 5 mg Sitagliptin Phosphate (Januvia) 25 mg PO DAILY [facility] Last Admin: 05/19/16 10:44 Dose: 25 mg Tacrolimus (Prograf Cap) 2 mg PO QAM [facility] Last Admin: 05/25/16 09:54 Dose: 2 mg Tacrolimus (Prograf Cap) 1.5 mg PO [facility] Last Admin: 05/24/16 21:33 Dose: 1.5 mg Trazodone HCl (Desyrel) 50 mg PO [facility] Last Admin: 05/24/16 21:44 Dose: 50 mg - Labs Labs: 05/24/16 08:14 05/24/16 08:14 - Constitutional Appears: Non-toxic, No Acute Distress - Head Exam Head Exam: NORMAL INSPECTION - Eye Exam Eye Exam: EOMI - ENT Exam ENT Exam: Mucous Membranes Moist - Respiratory Exam Respiratory Exam: Clear to Ausculation Bilateral, NORMAL BREATHING PATTERN. absent: Rales, Rhonchi, Wheezes - Cardiovascular Exam Cardiovascular Exam: REGULAR RHYTHM, +S1, +S2. absent: Gallop, Rubs, Murmur - GI/Abdominal Exam GI & Abdominal Exam: Soft, Normal Bowel Sounds. absent: Guarding, Rigid, Tenderness - Extremities Exam Extremities Exam: Normal Capillary Refill. absent: Pedal Edema - Neurological Exam Neurological Exam: Alert, Oriented x3 - Psychiatric Exam Psychiatric exam: Normal Affect, Normal Mood - Skin Skin Exam: Normal Color, Warm Assessment and Plan - Assessment and Plan (Free Text) Assessment: Diabetes HgbA1c 12.1 Lantus 26U SC HS Insulin Aspart 10U SC ACBL with holding parameters (increased from 8U ACBL) Cont home medications: Cont Glimepiride 2mg PO daily Cont ISS ACHS Neurontin 300mg po bid Januvia 25mg po daily- holding Accuchecks Diabetic Diet Monitor Hx Kidney transplant 2002 Tacrolimus 1.5mg po hs Tacrolimus 2mg po qam Prednisone 5mg po daily Cellcept 500mg po q12 Hypertension BP 105/73 Consistently on low side Stop Norvasc 5mg po daily Cont Enalapril 5mg po daily TSH 0.43- low Free T4 1.07 Hypercholesterolemia Lipid panel TG 85, Chol 121, LDL 46, HDl 49 Cont Crestor 5mg PO QHS Depression and suicidal ideation Managed as per psych Schizophrenia Managed as per psych Multi drug abuse Managed as per psych PPX Pepcid 20mg po daily Patient is ambulating- no SCDs on psych floor Diabetic Diet Dispo: mgmt as per psych Cont current medical mgmt Ambulate Labs WNL Low threshold to transfer to med-surg for possible sepsis in light of pt's immunosuppression due to kidney transplant <Juan C Miles - Last Filed: 07/01/16 16:10> Objective - Vital Signs/Intake and Output Vital Signs (last 24 hours): Temp Pulse Resp BP Pulse Ox 97.8 F 99 H 20 101/71 98 05/29/16 11:01 05/29/16 11:01 05/29/16 11:01 05/29/16 11:01 05/18/16 02:12 - Labs Labs: 05/26/16 06:49 05/26/16 06:49 Attending/Attestation - Attestation I have personally seen and examined this patient.: Yes I have fully participated in the care of the patient.: Yes I have reviewed all pertinent clinical information, including history, physical exam and plan: Yes Notes (Text): Patient seen and examined with the resident. Agree with the resident's evaluation, assessment and plan. Diabetes HgbA1c 12.1 Lantus 26U SC HS Insulin Aspart 10U SC ACBL with holding parameters (increased from 8U ACBL) Cont home medications: Cont Glimepiride 2mg PO daily Cont ISS ACHS Neurontin 300mg po bid Januvia 25mg po daily- holding Accuchecks Diabetic Diet Monitor Hx Kidney transplant 2002 Tacrolimus 1.5mg po hs Tacrolimus 2mg po qam Prednisone 5mg po daily Cellcept 500mg po q12
--- NOTE | 2016-05-25 16:13 | PCM.PYCHPN ---
Psychiatric Progress Note - Psychiatric Progress Note Patient seen today, length of contact: 16 min Patient Chief Complaint: i am still hearing voices Problems Identified/Issues Discussed: Patient seen and evaluated, chart reviewed and discussed with the nurse. Today patient appeared a bit better from yesterday. He appears a bit more organized than before but remained internally preoccupied. He still pacing back and forth in the hallways and looking around suspiciously remained paranoid and delusional. He is taking medication and denies any side effects. Medical Problems: DM Hypercholestrolimia HTN Medication Change: Yes (Increase Haldol) Medical Record Reviewed: Yes Mental Status Examination - Cognitive Function Orientation: Person, Place, Situation, Time Memory: Intact Attention: Poor Concentration: Poor Association: Loose Fund of Knowledge: Poor - Mood Mood: Depressed, Anxious - Affect Affect: Constricted, Depressed - Speech Speech: Soft - Formal Thought Process Formal Thought Process: Hallucinations, Delusions, Paranoia, Loosening of associations - Suicidal Ideation Suicidal Ideation: No - Homicidal Ideation Homicidal Ideation: No Goal/Treatment Plan - Goal/Treatment Plan Need for Continued Stay: Discharge may exacerbated symptoms, Severe functional impairment Progress Toward Problem(s) and Goals/Treatment Plan: Schizoaffective disorder depressed type CBT Psychoeducation Supportive therapy, group therapy, individual therapy Haldol 10 mg by mouth twice a day Neurontin 300 mg by mouth 2 times a day Trazodone 50 mg by mouth daily at bedtime Wellbutrin 300 mg by mouth daily DM Continue prescribed medications (insulin, sitagleptin, glimipride) Monitor signs symptoms Hypercholestrolimia Continue prescribed medications (rovustatin) Monitor signs symptoms HTN Continue prescribed medications (enalapril, amlodipine) Monitor signs symptoms
[2016-05-25] MEDS: (Lantus) Insulin Glargine, Recombinant SC SCH (21:37)
[2016-05-26 07:06] LABS: CHLORIDE 97 mmol/L (98-107); POTASSIUM 4.6 mmol/L (3.6-5.2); SODIUM 140 mmol/L (132-148)
[2016-05-26 07:07] LABS: BASO % 0.2 % (0.0-2.0); EOS # 0.1 K/uL (0.0-0.7); EOS % 1.6 % (0.0-4.0); HEMATOCRIT 34.2 % (35.0-51.0); LYMPH % 27.3 % (20.0-40.0); MEAN CELL VOLUME 88.1 fL (80.0-94.0); MEAN CORPUSCULAR HEMOGLOBIN 28.4 pg (27.0-31.0); MEAN CORPUSCULAR HGB CONC 32.3 g/dL (33.0-37.0); MEAN PLATELET VOLUME 8.2 fL (7.2-11.7); MONO # 0.9 K/uL (0.0-0.8); RED CELL DISTRIBUTION WIDTH 14.6 % (11.5-14.5); WHITE BLOOD COUNT 7.3 K/uL (4.8-10.8)
[2016-05-26 07:08] LABS: BILIRUBIN,TOTAL 0.5 mg/dL (0.2-1.3); CARBON DIOXIDE 28 mmol/L (22-30); GFR AFRICAN-AMERICAN > 60
[2016-05-26 07:09] LABS: ALB/GLOB RATIO 1.3 (1.0-2.1); ALKALINE PHOSPHATASE 66 U/L (38-126); ALT/SGPT 43 U/L (21-72); AST/SGOT 32 U/L (17-59); BLOOD UREA NITROGEN 26 mg/dL (9-20); CALCIUM 9.1 mg/dl (8.6-10.4); GLUCOSE,RANDOM 164 mg/dL (75-110); TOTAL PROTEIN 6.2 g/dL (6.3-8.3)
[2016-05-26] MEDS: (Novolog) Insulin Aspart, Recombinant 100 u/ml 10 ml vial SC SCH ×4 (08:20→22:11)
[2016-05-26] MEDS: (Novolog Mix 70/30) Insulin Aspart/Insulin Aspar 100 units/ml SC SCH ×2 (08:22→12:11)
[2016-05-26] MEDS: buPROPion 150 mg/24 Hours XL Tab PO SCH (11:22)
--- NOTE | 2016-05-26 13:04 | CP.PCM.PN ---
<Almaz Herrera - Last Filed: 05/26/16 13:01> Subjective - Date & Time of Evaluation Date of Evaluation: 05/26/16 Time of Evaluation: 09:00 - Subjective Subjective: Internal medicine progress note for Hospitalist service- Almaz Herrera, PGY-1 Pt S & E at bedside. Pt reports nasal congestion- is feeling about the same overall. Continues being cold and using multiple blankets. Sleeping/eating/ambulating ok. Denies N/V/F/ C, SOB, CP, abdominal pain. Objective - Vital Signs/Intake and Output Vital Signs (last 24 hours): Temp Pulse Resp BP Pulse Ox 97.6 F 76 18 160/93 H 98 05/26/16 07:57 05/26/16 07:57 05/26/16 07:57 05/26/16 11:24 05/18/16 02:12 - Medications Medications: Current Medications Benztropine Mesylate (Cogentin) 1 mg PO BID [facility] Last Admin: 05/26/16 11:28 Dose: 1 mg Bupropion HCl (Wellbutrin Xl) 300 mg PO DAILY [facility] Last Admin: 05/26/16 11:22 Dose: 300 mg Enalapril Maleate (Vasotec) 5 mg PO DAILY [facility] Last Admin: 05/26/16 11:24 Dose: 5 mg Famotidine (Pepcid) 20 mg PO DAILY [facility] Last Admin: 05/26/16 11:26 Dose: 20 mg Gabapentin (Neurontin) 300 mg PO BID [facility] Last Admin: 05/26/16 11:24 Dose: 300 mg Glimepiride (Amaryl) 2 mg PO DAILY [facility] Last Admin: 05/26/16 11:27 Dose: 2 mg Haloperidol (Haldol) 5 mg PO Q6 PRN PRN Reason: Agitation Last Admin: 05/25/16 01:19 Dose: 5 mg Haloperidol (Haldol) 10 mg PO BID [facility] Last Admin: 05/26/16 11:26 Dose: 10 mg Hydroxyzine HCl (Atarax) 25 mg PO Q6 PRN PRN Reason: Anxiety Last Admin: 05/25/16 21:39 Dose: 25 mg Insulin Aspart (Novolog) 0 unit SC ACHS [facility] PRN Reason: Protocol Last Admin: 05/26/16 08:20 Dose: Not Given Insulin Aspart (Novolog Mix 70/30 (70/30 Units/Ml)) 10 units SC ACBL [facility] Last Admin: 05/26/16 08:22 Dose: Not Given Insulin Glargine (Lantus) 26 unit SC [facility] Last Admin: 05/25/16 21:37 Dose: 26 units Loratadine (Claritin) 10 mg PO DAILY [facility] Mycophenolate Mofetil (Cellcept Cap) 750 mg PO BID [facility] Last Admin: 05/26/16 11:23 Dose: 750 mg Prednisone (Prednisone Tab) 5 mg PO DAILY [facility] Last Admin: 05/26/16 11:28 Dose: 5 mg Rosuvastatin Calcium (Crestor) 5 mg PO [facility] Last Admin: 05/25/16 21:34 Dose: 5 mg Sitagliptin Phosphate (Januvia) 25 mg PO DAILY [facility] Last Admin: 05/19/16 10:44 Dose: 25 mg [facility]) [facility] Last Admin: 05/26/16 11:26 Dose: 2 mg Tacrolimus (Prograf Cap) 1.5 mg PO [facility] Last Admin: 05/25/16 21:34 Dose: 1.5 mg Trazodone HCl (Desyrel) 50 mg PO [facility] Last Admin: 05/24/16 21:44 Dose: 50 mg - Labs Labs: 05/26/16 06:49 05/26/16 06:49 - Constitutional Appears: Non-toxic, No Acute Distress - Head Exam Head Exam: ATRAUMATIC, NORMAL INSPECTION, NORMOCEPHALIC - Eye Exam Eye Exam: EOMI, Normal appearance, PERRL Pupil Exam: NORMAL ACCOMODATION, PERRL - ENT Exam ENT Exam: Mucous Membranes Moist, Normal Exam - Neck Exam Neck Exam: Full ROM, Normal Inspection - Respiratory Exam Respiratory Exam: Clear to Ausculation Bilateral, NORMAL BREATHING PATTERN - Cardiovascular Exam Cardiovascular Exam: REGULAR RHYTHM, +S1, +S2 - GI/Abdominal Exam GI & Abdominal Exam: Soft, Normal Bowel Sounds. absent: Tenderness - Extremities Exam Extremities Exam: Full ROM, Normal Inspection. absent: Pedal Edema - Neurological Exam Neurological Exam: Alert, Awake, CN II-XII Intact, Oriented x3 - Psychiatric Exam Psychiatric exam: Normal Affect, Normal Mood - Skin Skin Exam: Dry, Intact, Normal Color, Warm Assessment and Plan - Assessment and Plan (Free Text) Assessment: Diabetes HgbA1c 12.1 Lantus 26U SC HS Insulin Aspart 10U SC ACBL with holding parameters (increased from 8U ACBL) Cont home medications: Cont Glimepiride 2mg PO daily Cont ISS ACHS Neurontin 300mg po bid Januvia 25mg po daily- holding Accuchecks Diabetic Diet Monitor Nasal congestion Started Claritin 10mg PO daily Monitor Hx Kidney transplant 2002 Tacrolimus 1.5mg po hs Tacrolimus 2mg po qam Prednisone 5mg po daily Cellcept 500mg po q12 FU tacrolimus level FU mycophenolate level Hypertension BP 108/73 Cont Enalapril 5mg po daily TSH 0.43- low Free T4 1.07 Hypercholesterolemia Lipid panel TG 85, Chol 121, LDL 46, HDl 49 Cont Crestor 5mg PO QHS Depression and suicidal ideation Managed as per psych Schizophrenia Managed as per psych Multi drug abuse Managed as per psych PPX Pepcid 20mg po daily Patient is ambulating- no SCDs on psych floor Diabetic Diet Dispo: mgmt as per psych Cont current medical mgmt Ambulate Labs WNL Low threshold to transfer to med-surg for possible sepsis in light of pt's immunosuppression due to kidney transplant FU tacrolimus and mycophenolate levels DW attending <Giancarlo Griffiths - Last Filed: 05/26/16 16:28> Objective - Vital Signs/Intake and Output Vital Signs (last 24 hours): Temp Pulse Resp BP Pulse Ox 97.6 F 96 H 18 116/86 98 05/26/16 07:57 05/26/16 15:43 05/26/16 07:57 05/26/16 15:43 05/18/16 02:12 - Medications Medications: Current Medications Benztropine Mesylate (Cogentin) 1 mg PO BID [facility] Last Admin: 05/26/16 11:28 Dose: 1 mg Bupropion HCl (Wellbutrin Xl) 300 mg PO DAILY [facility] Last Admin: 05/26/16 11:22 Dose: 300 mg Enalapril Maleate (Vasotec) 5 mg PO DAILY [facility] Last Admin: 05/26/16 11:24 Dose: 5 mg Famotidine (Pepcid) 20 mg PO DAILY [facility] Last Admin: 05/26/16 11:26 Dose: 20 mg Gabapentin (Neurontin) 300 mg PO BID [facility] Last Admin: 05/26/16 11:24 Dose: 300 mg Glimepiride (Amaryl) 2 mg PO DAILY [facility] Last Admin: 05/26/16 11:27 Dose: 2 mg Haloperidol (Haldol) 5 mg PO Q6 PRN PRN Reason: Agitation Last Admin: 05/25/16 01:19 Dose: 5 mg Haloperidol (Haldol) 10 mg PO BID [facility] Last Admin: 05/26/16 11:26 Dose: 10 mg Hydroxyzine HCl (Atarax) 25 mg PO Q6 PRN PRN Reason: Anxiety Last Admin: 05/25/16 21:39 Dose: 25 mg Insulin Aspart (Novolog) 0 unit SC ACHS [facility] PRN Reason: Protocol Last Admin: 05/26/16 12:11 Dose: Not Given Insulin Aspart (Novolog Mix 70/30 (70/30 Units/Ml)) 10 units SC ACBL [facility] Last Admin: 05/26/16 12:11 Dose: Not Given Insulin Glargine (Lantus) 26 unit SC [facility] Last Admin: 05/25/16 21:37 Dose: 26 units Loratadine (Claritin) 10 mg PO DAILY [facility] Mycophenolate Mofetil (Cellcept Cap) 750 mg PO BID [facility] Last Admin: 05/26/16 11:23 Dose: 750 mg Prednisone (Prednisone Tab) 5 mg PO DAILY [facility] Last Admin: 05/26/16 11:28 Dose: 5 mg Rosuvastatin Calcium (Crestor) 5 mg PO [facility] Last Admin: 05/25/16 21:34 Dose: 5 mg Sitagliptin Phosphate (Januvia) 25 mg PO DAILY [facility] Last Admin: 05/19/16 10:44 Dose: 25 mg [facility]imus [facility]f [facility]) [facility] Last Admin: 05/26/16 11:26 Dose: 2 mg Tacrolimus (Prograf Cap) 1.5 mg PO [facility] Last Admin: 05/25/16 21:34 Dose: 1.5 mg Trazodone HCl (Desyrel) 50 mg PO [facility] Last Admin: 05/24/16 21:44 Dose: 50 mg - Labs Labs: 05/26/16 06:49 05/26/16 06:49 Attending/Attestation - Attestation I have personally seen and examined this patient.: Yes I have fully participated in the care of the patient.: Yes I have reviewed all pertinent clinical information, including history, physical exam and plan: Yes Notes (Text): 05/26/16 16:27 Patient was seen and examined at bedside with the resident Patient appears comfortable Blood sugar is still elevated this morning However patient has not received his insulin as per schedule We will continue the same insulin regimen and the oral hypoglycemic agent Discussed with the primary psychiatry attending We will also obtain levels for tacrolimus and CellCept We have recommended the nephrology evaluation for monitoring of his medication for renal transplant
--- NOTE | 2016-05-26 14:29 | PCM.PYCHPN ---
Psychiatric Progress Note - Psychiatric Progress Note Patient seen today, length of contact: 17 min Patient Chief Complaint: No more voices Problems Identified/Issues Discussed: Patient seen and evaluated, chart reviewed and discussed with the nurse. Pt is compliant with treatment, without adverse effect. Reports he no longer hears voices. Continued complaint of someone is following/watching him/going to kill him. He remains disorganized and internally preoccupied. Denies suicidal ideation and homicidal ideation. Psychoeducation and support given. Patient was discussed with the medical team regarding the transplant medications. Medical Problems: DM Hypercholestrolimia HTN Medication Change: No Medical Record Reviewed: Yes Mental Status Examination - Cognitive Function Orientation: Person, Place, Situation, Time Memory: Intact Attention: Poor Concentration: Poor Association: Loose Fund of Knowledge: Poor - Mood Mood: Depressed, Anxious - Affect Affect: Flat, Depressed - Speech Speech: Soft - Formal Thought Process Formal Thought Process: Delusions, Paranoia, Loosening of associations - Suicidal Ideation Suicidal Ideation: No - Homicidal Ideation Homicidal Ideation: No Goal/Treatment Plan - Goal/Treatment Plan Need for Continued Stay: Remain at risks for inpatient hospitalization, Discharge may exacerbated symptoms, Severe functional impairment Progress Toward Problem(s) and Goals/Treatment Plan: Schizoaffective disorder depressed type CBT Psychoeducation Supportive therapy, group therapy, individual therapy Haloperidol 10 mg by mouth twice a day Neurontin 300 mg by mouth 2 times a day Trazodone 50 mg by mouth daily at bedtime Wellbutrin 300 mg by mouth daily DM Continue prescribed medications (insulin, sitagleptin, glimipride) Monitor signs symptoms Hypercholestrolimia Continue prescribed medications (rovustatin) Monitor signs symptoms HTN Continue prescribed medications (enalapril, amlodipine) Monitor signs symptoms Estimated Date of D/C: 05/28/16
[2016-05-26] MEDS: (Lantus) Insulin Glargine, Recombinant SC SCH (22:09)
[2016-05-27] MEDS: (Novolog) Insulin Aspart, Recombinant 100 u/ml 10 ml vial SC SCH ×4 (08:51→21:05)
[2016-05-27] MEDS: (Novolog Mix 70/30) Insulin Aspart/Insulin Aspar 100 units/ml SC SCH ×2 (09:33→11:54)
[2016-05-27] MEDS: buPROPion 150 mg/24 Hours XL Tab PO SCH (09:35)
--- NOTE | 2016-05-27 13:56 | CP.PCM.PN ---
<Almaz Herrera - Last Filed: 05/27/16 13:54> Subjective - Date & Time of Evaluation Date of Evaluation: 05/27/16 Time of Evaluation: 07:55 - Subjective Subjective: Internal medicine progress note for Hospitalist service- Almaz Herrera, PGY-1 Pt S & E at bedside. Pt reports continued nasal congestion, still feeling about the same overall. Continues being cold and using multiple blankets. Sleeping/eating/ambulating ok. Denies N/V/F/C, SOB, CP, abdominal pain. Objective - Vital Signs/Intake and Output Vital Signs (last 24 hours): Temp Pulse Resp BP Pulse Ox 97.4 F L 73 18 121/82 98 05/27/16 08:14 05/27/16 08:14 05/27/16 08:14 05/27/16 09:35 05/18/16 02:12 - Medications Medications: Current Medications Benztropine Mesylate (Cogentin) 1 mg PO BID [facility] Last Admin: 05/27/16 09:35 Dose: 1 mg Bupropion HCl (Wellbutrin Xl) 300 mg PO DAILY [facility] Last Admin: 05/27/16 09:35 Dose: 300 mg Enalapril Maleate (Vasotec) 5 mg PO DAILY [facility] Last Admin: 05/27/16 09:35 Dose: 5 mg Famotidine (Pepcid) 20 mg PO DAILY [facility] Last Admin: 05/27/16 09:35 Dose: 20 mg Gabapentin (Neurontin) 300 mg PO BID [facility] Last Admin: 05/27/16 09:35 Dose: 300 mg Glimepiride (Amaryl) 4 mg PO DAILY [facility] Last Admin: 05/27/16 09:44 Dose: 4 mg Haloperidol (Haldol) 5 mg PO Q6 PRN PRN Reason: Agitation Last Admin: 05/25/16 01:19 Dose: 5 mg Haloperidol (Haldol) 10 mg PO BID [facility] Last Admin: 05/27/16 09:35 Dose: 10 mg Hydroxyzine HCl (Atarax) 25 mg PO Q6 PRN PRN Reason: Anxiety Last Admin: 05/25/16 21:39 Dose: 25 mg Insulin Aspart (Novolog) 0 unit SC ACHS [facility] PRN Reason: Protocol Last Admin: 05/27/16 11:56 Dose: 3 unit Insulin Aspart (Novolog Mix 70/30 (70/30 Units/Ml)) 10 units SC ACBL [facility] Last Admin: 05/27/16 11:54 Dose: 10 units Insulin Glargine (Lantus) 26 unit SC [facility] Last Admin: 05/26/16 22:09 Dose: 26 units Loratadine (Claritin) 10 mg PO DAILY [facility] Last Admin: 05/27/16 09:38 Dose: 10 mg Mycophenolate Mofetil (Cellcept Cap) 750 mg PO BID [facility] Last Admin: 05/27/16 09:38 Dose: 750 mg Prednisone (Prednisone Tab) 5 mg PO DAILY [facility] Last Admin: 05/27/16 09:37 Dose: 5 mg Rosuvastatin Calcium (Crestor) 5 mg PO [facility] Last Admin: 05/26/16 22:08 Dose: 5 mg Sitagliptin Phosphate (Januvia) 25 mg PO DAILY [facility] Last Admin: 05/19/16 10:44 Dose: 25 mg [facility] ([facility]f [facility]) [facility] Last Admin: 05/27/16 09:38 Dose: 2 mg Tacrolimus (Prograf Cap) 1.5 mg PO [facility] Last Admin: 05/26/16 22:08 Dose: 1.5 mg Trazodone HCl (Desyrel) 50 mg PO [facility] Last Admin: 05/26/16 22:08 Dose: 50 mg - Labs Labs: 05/26/16 06:49 05/26/16 06:49 - Constitutional Appears: Non-toxic, No Acute Distress - Head Exam Head Exam: ATRAUMATIC, NORMAL INSPECTION, NORMOCEPHALIC - Eye Exam Eye Exam: EOMI, Normal appearance, PERRL Pupil Exam: NORMAL ACCOMODATION, PERRL - ENT Exam ENT Exam: Mucous Membranes Moist, Normal Exam - Neck Exam Neck Exam: Full ROM, Normal Inspection - Respiratory Exam Respiratory Exam: Clear to Ausculation Bilateral, NORMAL BREATHING PATTERN. absent: Rales, Rhonchi, Wheezes, Respiratory Distress, Stridor - Cardiovascular Exam Cardiovascular Exam: REGULAR RHYTHM, +S1, +S2 - GI/Abdominal Exam GI & Abdominal Exam: Soft, Normal Bowel Sounds. absent: Distended, Firm, Guarding, Rigid, Tenderness - Extremities Exam Extremities Exam: Full ROM, Normal Inspection. absent: Pedal Edema, Tenderness - Back Exam Back Exam: Full ROM, NORMAL INSPECTION - Neurological Exam Neurological Exam: Alert, Awake, CN II-XII Intact, Oriented x3 - Psychiatric Exam Psychiatric exam: Normal Affect, Normal Mood - Skin Skin Exam: Dry, Intact, Normal Color, Warm Assessment and Plan - Assessment and Plan (Free Text) Assessment: Diabetes HgbA1c 12.1 Cont Lantus 26U SC HS Insulin Aspart 10U SC ACBL with holding parameters (increased from 8U ACBL) Cont home medications: Glimepiride 2mg PO daily increased 4mg PO daily Cont ISS ACHS Neurontin 300mg po bid Januvia 25mg po daily- holding Accuchecks Diabetic Diet Monitor Nasal congestion Cont Claritin 10mg PO daily Monitor Hx Kidney transplant 2002 Tacrolimus 1.5mg po hs Tacrolimus 2mg po qam Prednisone 5mg po daily Cellcept 500mg po q12 Tacrolimus level 8.1 FU mycophenolate level- send out lab, still pending Hypertension BP 116/86 Cont Enalapril 5mg po daily TSH 0.43- low Free T4 1.07 Hypercholesterolemia Lipid panel TG 85, Chol 121, LDL 46, HDl 49 Cont Crestor 5mg PO QHS Depression and suicidal ideation Managed as per psych Schizophrenia Managed as per psych Multi drug abuse Managed as per psych PPX Pepcid 20mg po daily Patient is ambulating- no SCDs on psych floor Diabetic Diet Dispo: mgmt as per psych Cont current medical mgmt Ambulate Labs WNL Low threshold to transfer to med-surg for possible sepsis in light of pt's immunosuppression due to kidney transplant FU mycophenolate levels DW attending <Giancarlo Griffiths - Last Filed: 05/28/16 08:55> Objective - Vital Signs/Intake and Output Vital Signs (last 24 hours): Temp Pulse Resp BP Pulse Ox 97 F L 78 18 115/77 98 05/28/16 06:38 05/28/16 06:38 05/28/16 06:38 05/28/16 06:38 05/18/16 02:12 - Medications Medications: Current Medications Benztropine Mesylate (Cogentin) 1 mg PO BID [facility] Last Admin: 05/27/16 18:16 Dose: 1 mg Bupropion HCl (Wellbutrin Xl) 300 mg PO DAILY [facility] Last Admin: 05/27/16 09:35 Dose: 300 mg Enalapril Maleate (Vasotec) 5 mg PO DAILY [facility] Last Admin: 05/27/16 09:35 Dose: 5 mg Famotidine (Pepcid) 20 mg PO DAILY [facility] Last Admin: 05/27/16 09:35 Dose: 20 mg Gabapentin (Neurontin) 300 mg PO BID [facility] Last Admin: 05/27/16 18:16 Dose: 300 mg Glimepiride (Amaryl) 4 mg PO DAILY [facility] Last Admin: 05/27/16 09:44 Dose: 4 mg Haloperidol (Haldol) 5 mg PO Q6 PRN PRN Reason: Agitation Last Admin: 05/25/16 01:19 Dose: 5 mg Haloperidol (Haldol) 10 mg PO BID [facility] Last Admin: 05/27/16 18:16 Dose: 10 mg Hydroxyzine HCl (Atarax) 25 mg PO Q6 PRN PRN Reason: Anxiety Last Admin: 05/25/16 21:39 Dose: 25 mg Insulin Aspart (Novolog) 0 unit SC ACHS [facility] PRN Reason: Protocol Last Admin: 05/28/16 08:30 Dose: Not Given Insulin Aspart (Novolog Mix 70/30 (70/30 Units/Ml)) 10 units SC ACBL [facility] Last Admin: 05/28/16 08:28 Dose: 10 units Insulin Glargine (Lantus) 26 unit SC HS [facility] Last Admin: 05/27/16 21:05 Dose: 26 units Loratadine (Claritin) 10 mg PO DAILY [facility] Last Admin: 05/27/16 09:38 Dose: 10 mg Mycophenolate Mofetil (Cellcept Cap) 750 mg PO BID [facility] Last Admin: 05/27/16 18:16 Dose: 750 mg Prednisone (Prednisone Tab) 5 mg PO DAILY [facility] Last Admin: 05/27/16 09:37 Dose: 5 mg Rosuvastatin Calcium (Crestor) 5 mg PO HS [facility] Last Admin: 05/27/16 21:06 Dose: 5 mg Sertraline HCl (Zoloft) 50 mg PO DAILY [facility] Sitagliptin Phosphate (Januvia) 25 mg PO DAILY [facility] Last Admin: 05/19/16 10:44 Dose: 25 mg Tacrolimus (Prograf Cap) 2 mg PO QAM [facility] Last Admin: 05/27/16 09:38 Dose: 2 mg Tacrolimus (Prograf Cap) 1.5 mg PO HS [facility] Last Admin: 05/27/16 21:06 Dose: 1.5 mg Trazodone HCl (Desyrel) 100 mg PO HS [facility] Last Admin: 05/27/16 21:06 Dose: 100 mg - Labs Labs: 05/26/16 06:49 05/26/16 06:49 Attending/Attestation - Attestation I have personally seen and examined this patient.: Yes I have fully participated in the care of the patient.: Yes I have reviewed all pertinent clinical information, including history, physical exam and plan: Yes Notes (Text): 05/28/16 08:54 Discussed the plan of care with the resident We will titrate the diabetes medication because patient still has hyperglycemia I agree with the history and physical and assessment/plan as documented above.
--- NOTE | 2016-05-27 15:00 | PCM.PYCHPN ---
Psychiatric Progress Note - Psychiatric Progress Note Patient seen today, length of contact: 16 min Patient Chief Complaint: I'm feeling much better Problems Identified/Issues Discussed: Patient seen and evaluated, chart reviewed and discussed with the nurse. As per staff patient is doing much better and he is no longer getting up in the night. He appears more organized than before but remains internally preoccupied. He is still delusional and paranoid and smiling and looking around suspiciously. Pt is compliant with treatment, without adverse effect. Psychoeducation and support given. Medical Problems: DM Hypercholestrolimia HTN Medication Change: Yes (Haldol Decanoate 50 mg IM, start Zoloft) Medical Record Reviewed: Yes Mental Status Examination - Cognitive Function Orientation: Person, Place, Situation, Time Memory: Intact Attention: WNL Concentration: Poor Association: Loose Fund of Knowledge: Poor - Mood Mood: Depressed, Anxious - Affect Affect: Flat, Depressed - Speech Speech: Soft - Formal Thought Process Formal Thought Process: Delusions, Paranoia, Loosening of associations - Suicidal Ideation Suicidal Ideation: No - Homicidal Ideation Homicidal Ideation: No Goal/Treatment Plan - Goal/Treatment Plan Need for Continued Stay: Remain at risks for inpatient hospitalization, Discharge may exacerbated symptoms, Severe functional impairment Progress Toward Problem(s) and Goals/Treatment Plan: Schizoaffective disorder depressed type CBT Psychoeducation Supportive therapy, group therapy, individual therapy Haloperidol 10 mg by mouth twice a day Neurontin 300 mg by mouth 2 times a day Trazodone 100 mg by mouth daily at bedtime Wellbutrin 300 mg by mouth daily Haldol Decanoate 50 mg IM stat Start Zoloft 50 mg daily DM Continue prescribed medications (insulin, sitagleptin, glimipride) Monitor signs symptoms Hypercholestrolimia Continue prescribed medications (rovustatin) Monitor signs symptoms HTN Continue prescribed medications (enalapril, amlodipine) Monitor signs symptoms Estimated Date of D/C: 05/28/16 - Smoking Cessation Smoking Cessation Initiated: No
[2016-05-27] MEDS: (Lantus) Insulin Glargine, Recombinant SC SCH (21:05)
[2016-05-28] MEDS: (Novolog Mix 70/30) Insulin Aspart/Insulin Aspar 100 units/ml SC SCH (08:28)
[2016-05-28] MEDS: (Novolog) Insulin Aspart, Recombinant 100 u/ml 10 ml vial SC SCH ×4 (08:30→22:31)
[2016-05-28] MEDS ORDERED: (Lantus) Insulin Glargine, Recombinant SC SCH (09:53)
[2016-05-28] MEDS: buPROPion 150 mg/24 Hours XL Tab PO SCH (11:05)
--- NOTE | 2016-05-28 11:16 | PCM.PYCHPN ---
Psychiatric Progress Note - Psychiatric Progress Note Patient seen today, length of contact: 16 min Patient Chief Complaint: I'm feeling much better Problems Identified/Issues Discussed: Patient seen and evaluated, chart reviewed and discussed with the nurse. Patient reports improvement in his mood and paranoia. He has started coming out of of his room and has started attending groups and meetings. As per staff patient is doing much better and he is no longer getting up in the night. Pt is compliant with treatment, without adverse effect. Psychoeducation and support given. Medical Problems: DM Hypercholestrolimia HTN Medication Change: No Medical Record Reviewed: Yes Mental Status Examination - Cognitive Function Orientation: Person, Place, Situation, Time Memory: Intact Attention: WNL Concentration: WNL Association: WNL Fund of Knowledge: WNL - Mood Mood: Anxious - Affect Affect: Constricted - Speech Speech: Soft - Formal Thought Process Formal Thought Process: No Impairment - Suicidal Ideation Suicidal Ideation: No - Homicidal Ideation Homicidal Ideation: No Goal/Treatment Plan - Goal/Treatment Plan Need for Continued Stay: Remain at risks for inpatient hospitalization, Discharge may exacerbated symptoms, Severe functional impairment Progress Toward Problem(s) and Goals/Treatment Plan: Schizoaffective disorder depressed type CBT Psychoeducation Supportive therapy, group therapy, individual therapy Haloperidol 10 mg by mouth twice a day Neurontin 300 mg by mouth 2 times a day Trazodone 100 mg by mouth daily at bedtime Wellbutrin 300 mg by mouth daily Haldol Decanoate 50 mg IM stat Start Zoloft 50 mg daily DM Continue prescribed medications (insulin, sitagleptin, glimipride) Monitor signs symptoms Hypercholestrolimia Continue prescribed medications (rovustatin) Monitor signs symptoms HTN Continue prescribed medications (enalapril, amlodipine) Monitor signs symptoms Estimated Date of D/C: 05/28/16 - Smoking Cessation Smoking Cessation Initiated: No
[2016-05-28] MEDS ORDERED: (Novolog) Insulin Aspart, Recombinant 100 u/ml 10 ml vial SC SCH (11:30)
--- NOTE | 2016-05-28 11:42 | CP.PCM.PN ---
<Almaz Herrera - Last Filed: 05/28/16 11:41> Subjective - Date & Time of Evaluation Date of Evaluation: 05/28/16 Time of Evaluation: 07:50 - Subjective Subjective: Internal medicine progress note for Hospitalist service- Almaz Herrera, PGY-1 Pt S & E at bedside. Pt reports feeling okay, denies f/c/severino/n/v/d/c/sob/cough/cp/palp. Hypoglycemic this AM- asymptomatic. Objective - Vital Signs/Intake and Output Vital Signs (last 24 hours): Temp Pulse Resp BP Pulse Ox 97 F L 78 18 115/77 98 05/28/16 06:38 05/28/16 06:38 05/28/16 06:38 05/28/16 11:06 05/18/16 02:12 - Medications Medications: Current Medications Benztropine Mesylate (Cogentin) 1 mg PO BID [facility] Last Admin: 05/28/16 11:05 Dose: 1 mg Bupropion HCl (Wellbutrin Xl) 300 mg PO DAILY [facility] Last Admin: 05/28/16 11:05 Dose: 300 mg Enalapril Maleate (Vasotec) 5 mg PO DAILY [facility] Last Admin: 05/28/16 11:06 Dose: 5 mg Famotidine (Pepcid) 20 mg PO DAILY [facility] Last Admin: 05/28/16 11:05 Dose: 20 mg Gabapentin (Neurontin) 300 mg PO BID [facility] Last Admin: 05/28/16 11:12 Dose: 300 mg Glimepiride (Amaryl) 4 mg PO DAILY [facility] Last Admin: 05/28/16 11:08 Dose: 4 mg Haloperidol (Haldol) 5 mg PO Q6 PRN PRN Reason: Agitation Last Admin: 05/25/16 01:19 Dose: 5 mg Haloperidol (Haldol) 10 mg PO BID [facility] Last Admin: 05/28/16 11:06 Dose: 10 mg Hydroxyzine HCl (Atarax) 25 mg PO Q6 PRN PRN Reason: Anxiety Last Admin: 05/25/16 21:39 Dose: 25 mg Insulin Aspart (Novolog) 0 unit SC ACHS [facility] PRN Reason: Protocol Insulin Aspart (Novolog) 8 unit SC ACTID [facility] Insulin Glargine (Lantus) 20 unit SC HS [facility] Loratadine (Claritin) 10 mg PO DAILY [facility] Last Admin: 05/28/16 11:10 Dose: 10 mg Mycophenolate Mofetil (Cellcept Cap) 750 mg PO BID [facility] Last Admin: 05/28/16 11:08 Dose: 750 mg Prednisone (Prednisone Tab) 5 mg PO DAILY [facility] Last Admin: 05/28/16 11:10 Dose: 5 mg Rosuvastatin Calcium (Crestor) 5 mg PO HS [facility] Last Admin: 05/27/16 21:06 Dose: 5 mg Sertraline HCl (Zoloft) 100 mg PO DAILY [facility] Sitagliptin Phosphate (Januvia) 25 mg PO DAILY [facility] Last Admin: 05/19/16 10:44 Dose: 25 mg Tacrolimus (Prograf Cap) 2 mg PO QAM [facility] Last Admin: 05/28/16 11:10 Dose: 2 mg Tacrolimus (Prograf Cap) 1.5 mg PO HS [facility] Last Admin: 05/27/16 21:06 Dose: 1.5 mg Trazodone HCl (Desyrel) 100 mg PO HS [facility] Last Admin: 05/27/16 21:06 Dose: 100 mg - Labs Labs: 05/26/16 06:49 05/26/16 06:49 - Constitutional Appears: Non-toxic, No Acute Distress - Head Exam Head Exam: ATRAUMATIC, NORMAL INSPECTION, NORMOCEPHALIC - Eye Exam Eye Exam: EOMI, Normal appearance, PERRL Pupil Exam: NORMAL ACCOMODATION, PERRL - ENT Exam ENT Exam: Mucous Membranes Moist, Normal Exam - Neck Exam Neck Exam: Full ROM, Normal Inspection - Respiratory Exam Respiratory Exam: Clear to Ausculation Bilateral, NORMAL BREATHING PATTERN - Cardiovascular Exam Cardiovascular Exam: REGULAR RHYTHM, +S1, +S2 - GI/Abdominal Exam GI & Abdominal Exam: Soft, Normal Bowel Sounds. absent: Tenderness - Extremities Exam Extremities Exam: Full ROM, Normal Inspection. absent: Pedal Edema, Tenderness - Back Exam Back Exam: Full ROM, NORMAL INSPECTION - Neurological Exam Neurological Exam: Alert, Awake, CN II-XII Intact, Oriented x3 - Psychiatric Exam Psychiatric exam: Normal Affect, Normal Mood - Skin Skin Exam: Dry, Intact, Normal Color, Warm Assessment and Plan - Assessment and Plan (Free Text) Assessment: Diabetes Hypoglycemic today: BS 52 HgbA1c 12.1 Cont Lantus 26U SC HS changed to 20 Units HS Insulin Aspart 10U SC ACBL with holding parameters changed to Novolog 8 Units ACTID Cont home medications: Glimepiride 4mg PO daily Cont ISS ACHS- changed to low protocol Neurontin 300mg po bid Januvia 25mg po daily- holding Accuchecks Diabetic Diet Monitor Nasal congestion Cont Claritin 10mg PO daily Monitor Hx Kidney transplant 2002 Tacrolimus 1.5mg po hs Tacrolimus 2mg po qam Prednisone 5mg po daily Cellcept 500mg po q12 Tacrolimus level 8.1 FU mycophenolate level- send out lab, still pending Hypertension BP 115/77 Cont Enalapril 5mg po daily TSH 0.43- low Free T4 1.07 Hypercholesterolemia Lipid panel TG 85, Chol 121, LDL 46, HDl 49 Cont Crestor 5mg PO QHS Depression and suicidal ideation Managed as per psych Schizophrenia Managed as per psych Multi drug abuse Managed as per psych PPX Pepcid 20mg po daily Patient is ambulating- no SCDs on psych floor Diabetic Diet Dispo: mgmt as per psych Cont current medical mgmt Ambulate Labs WNL Low threshold to transfer to med-surg for possible sepsis in light of pt's immunosuppression due to kidney transplant FU mycophenolate levels Monitor blood sugars DW attending <Giancarlo Griffiths - Last Filed: 05/28/16 17:03> Objective - Vital Signs/Intake and Output Vital Signs (last 24 hours): Temp Pulse Resp BP Pulse Ox 97 F L 76 18 114/75 98 05/28/16 06:38 05/28/16 15:50 05/28/16 06:38 05/28/16 15:50 05/18/16 02:12 - Medications Medications: Current Medications Benztropine Mesylate (Cogentin) 1 mg PO BID [facility] Last Admin: 05/28/16 11:05 Dose: 1 mg Bupropion HCl (Wellbutrin Xl) 300 mg PO DAILY [facility] Last Admin: 05/28/16 11:05 Dose: 300 mg Enalapril Maleate (Vasotec) 5 mg PO DAILY [facility] Last Admin: 05/28/16 11:06 Dose: 5 mg Famotidine (Pepcid) 20 mg PO DAILY [facility] Last Admin: 05/28/16 11:05 Dose: 20 mg Gabapentin (Neurontin) 300 mg PO BID [facility] Last Admin: 05/28/16 11:12 Dose: 300 mg Glimepiride (Amaryl) 4 mg PO DAILY [facility] Last Admin: 05/28/16 11:08 Dose: 4 mg Haloperidol (Haldol) 5 mg PO Q6 PRN PRN Reason: Agitation Last Admin: 05/25/16 01:19 Dose: 5 mg Haloperidol (Haldol) 10 mg PO BID [facility] Last Admin: 05/28/16 11:06 Dose: 10 mg Hydroxyzine HCl (Atarax) 25 mg PO Q6 PRN PRN Reason: Anxiety Last Admin: 05/25/16 21:39 Dose: 25 mg Insulin Aspart (Novolog) 0 unit SC ACHS [facility] PRN Reason: Protocol Last Admin: 05/28/16 11:57 Dose: 2 unit Insulin Aspart (Novolog) 5 unit SC ACTID [facility] Insulin Glargine (Lantus) 20 unit SC HS [facility] Loratadine (Claritin) 10 mg PO DAILY [facility] Last Admin: 05/28/16 11:10 Dose: 10 mg Mycophenolate Mofetil (Cellcept Cap) 750 mg PO BID [facility] Last Admin: 05/28/16 11:08 Dose: 750 mg Prednisone (Prednisone Tab) 5 mg PO DAILY [facility] Last Admin: 05/28/16 11:10 Dose: 5 mg Rosuvastatin Calcium (Crestor) 5 mg PO HS [facility] Last Admin: 05/27/16 21:06 Dose: 5 mg Sertraline HCl (Zoloft) 100 mg PO DAILY [facility] Sitagliptin Phosphate (Januvia) 25 mg PO DAILY [facility] Last Admin: 05/19/16 10:44 Dose: 25 mg [facility]imus ([facility]f [facility]) [facility] Last Admin: 05/28/16 11:10 Dose: 2 mg Tacrolimus (Prograf Cap) 1.5 mg PO [facility] Last Admin: 05/27/16 21:06 Dose: 1.5 mg Trazodone HCl (Desyrel) 100 mg PO [facility] Last Admin: 05/27/16 21:06 Dose: 100 mg - Labs Labs: 05/26/16 06:49 05/26/16 06:49 Attending/Attestation - Attestation I have personally seen and examined this patient.: Yes I have fully participated in the care of the patient.: Yes I have reviewed all pertinent clinical information, including history, physical exam and plan: Yes Notes (Text): 05/28/16 17:02 Patient was seen and examined at bedside with the resident today Patient to is no new complaints Him labs noted. Patient with episode of for hypoglycemia this morning We will decrease the dose of insulin. We will change the Lantus to 20 units at night and NovoLog to 5 units 3 times a day before meals. Discussed with the resident and agree with the above assessment and plan documented with the resident.
[2016-05-29] MEDS: (Novolog) Insulin Aspart, Recombinant 100 u/ml 10 ml vial SC SCH ×4 (08:30→12:08)
--- NOTE | 2016-05-29 09:59 | PCM.PYCHDC ---
Mental Status Examination - Mental Status Examination Orientation: Person, Place, Situation, Time Memory: Intact Mood: Neutral Affect: Constricted Speech: Soft Attention: WNL Concentration: WNL Association: WNL Fund of Knowledge: WNL Formal Thought Process: No Impairment Description of patient's judgement and insight: good, fair Psychotic Thoughts and Behaviors: denies any AVH Suicidal Ideation: No Current Homicidal Ideation?: No Discharge Summary - Discharge Note Reason for Hospitalization: Patient is a 35 years old, single, unemployed, male with history of schizophrenia for last 5 years, reported compliant with treatment including Zyprexa, Abilify and Wellbutrin. Patient reported he was attending [facility] outpatient. Reported yesterday he started hearing voices telling him that they will kill him and also reported he had suicidal ideation with plan to overdose on his medication. Patient came to [facility] for help and [facility]. Patient reported not feeling depressed but reported has some problem with sleep. Reported history of frequent suicidal ideations, last had yesterday with plan to overdose on his pills. Reported history of 2 previous suicidal attempts. First was in 2007 and second one 2013. And both he overdose on Cogentin and Xanax. Reported he was not admitted in the hospital after these attempts. History of 8 inpatient psychiatric admissions at [facility] and [facility] prior to this admission. This is his first admission at [facility]. Also reported hearing voices at times. The voices were telling him that they will kill him. Denied any manic symptoms. Heroin: Started using heroin at the age of 16 years, was using 20 bags daily, IV. His last use was 1 month ago. Longest period of abstinence 3 years. Relapsed a few months ago. History of 3 detox and 3 rehabs. Cocaine: Started at the age of 23 years, using unknown amount, last use reported 3 days ago. Cannabis: He was guarded about cannabis use but last use reported 3 weeks ago. Alcohol: He reports drinking alcohol once a week. Reported he drinks 5 beers each time. Last drink reported 2 days ago, 5 beers. Denied smoking cigarettes. Patient has history of right renal transplant. Reported he was in [facility] for some time due to possession of weapon but not on probation. He was born in [place]. Has high school graduation. Not working. His last job was in 2000. He is on SSDI. He is single, has 2 children, 16 years and 14 years old who live with their mother. Patient lives with his mother. Height is 5 feet 6 inches and weight is 134 pounds. Laboratory Data: Abnormal Lab Results 05/27/16 05/28/16 05/28/16 07:36 11:43 17:20 POC Glucose (mg/dL) 226 H 109 Tacrolimus (LC/MS/MS) 10.6 05/28/16 05/29/16 20:16 07:19 POC Glucose (mg/dL) 196 H 154 H Tacrolimus (LC/MS/MS) Consultations:: List each consultation separately and include: 1. Reason for request. 2. Findings. 3. Follow-up Summary of Hospital Course include:: 1. Description of specific treatment plan utilized for patients during their course of treatmen. 2. Summarize the time- course for resolution of acute symptoms and/or regressed behaviors. 3. Describe issues identified and worked on during hospitalization. 4. Describe medication utilized. 5. Describe medical problems identified and treated. 6. Reassessment of suicide risk Summary of Hospital Course: During the course of his stay, patient (pt) started progressively improving and he no longer remained irritable, depressed, suicidal and paranoid. His mood and paranoia were improved and he started attending groups and meetings and started socializing. He started taking care of his hygiene and ADLs, and he no longer remained disheveled and malodorous. Patient denied any feelings of hopelessness , helplessness, and worthlessness, denied any problem with the sleep or appetite , denied suicidal ideation or homicidal ideation. Pt denied any auditory or visual hallucinations. Some changes were made in his current medications and patient was discharged on following medications. He tolerated these medications very well and denied any side effects. - Final Diagnosis (DSM 5) Condition upon Discharge: FAIR DSM 5: Schizoaffective disorder depressed type Disposition: HOME/ ROUTINE Follow-up Treatment Plan: Education: Pt was educated and counseled about the risks and benefits of taking and not taking medications. Pt was educated and counseled about the risks of drinking and abusing drugs. Pt was educated and counseled to go to the ER or call 911 if pt develop suicidal ideation or homicidal ideation, worsening of symptoms or severe side effects of the meds. Prescriptions/Medication Reconciliation: Benztropine [Cogentin] 1 mg PO BID #60 tab traZODone [Desyrel] 100 mg PO HS #30 tab Haloperidol [Haldol] 10 mg PO BID #60 tab buPROPion XL [Wellbutrin XL] 150 mg PO DAILY #60 t24 Sertraline [Zoloft] 100 mg PO DAILY #30 tab Sertraline [Zoloft] 100 mg PO DAILY #30 tab - Smoking Cessation Smoking Cessation Medication prescribed: No - Antipsychotic Medications Pt discharged on 2 or more routine antipsychotic medications: No
[2016-05-29] MEDS: buPROPion 150 mg/24 Hours XL Tab PO SCH (10:21)
[2016-05-29 10:30] VITALS: BP 101/71
--- NOTE | 2016-05-29 10:53 | CP.PCM.PN ---
<Almaz Herrera - Last Filed: 05/29/16 10:50> Subjective - Date & Time of Evaluation Date of Evaluation: 05/29/16 Time of Evaluation: 07:50 - Subjective Subjective: Internal medicine progress note for Hospitalist service- Almaz Herrera, PGY-1 Pt S & E at bedside. Patient reports he has no complaints. Patient admits to intermittent chills and urinary frequency, but denies dysuria, urinary urge, SOB, fever, cough, CP, Palps, N, V, D, C, VALIENTE. Objective - Vital Signs/Intake and Output Vital Signs (last 24 hours): Temp Pulse Resp BP Pulse Ox 97 F L 76 18 101/71 98 05/28/16 06:38 05/28/16 15:50 05/28/16 06:38 05/29/16 10:25 05/18/16 02:12 - Medications Medications: Current Medications Benztropine Mesylate (Cogentin) 1 mg PO BID [facility] Last Admin: 05/29/16 10:19 Dose: 1 mg Bupropion HCl (Wellbutrin Xl) 300 mg PO DAILY [facility] Last Admin: 05/29/16 10:21 Dose: 300 mg Enalapril Maleate (Vasotec) 5 mg PO DAILY [facility] Last Admin: 05/29/16 10:25 Dose: Not Given Famotidine (Pepcid) 20 mg PO DAILY [facility] Last Admin: 05/29/16 10:20 Dose: 20 mg Gabapentin (Neurontin) 300 mg PO BID [facility] Last Admin: 05/29/16 10:20 Dose: 300 mg Glimepiride (Amaryl) 4 mg PO DAILY [facility] Last Admin: 05/29/16 10:22 Dose: 4 mg Haloperidol (Haldol) 5 mg PO Q6 PRN PRN Reason: Agitation Last Admin: 05/25/16 01:19 Dose: 5 mg Haloperidol (Haldol) 10 mg PO BID [facility] Last Admin: 05/29/16 10:20 Dose: 10 mg Hydroxyzine HCl (Atarax) 25 mg PO Q6 PRN PRN Reason: Anxiety Last Admin: 05/25/16 21:39 Dose: 25 mg Insulin Aspart (Novolog) 0 unit SC ACHS [facility] PRN Reason: Protocol Last Admin: 05/29/16 08:30 Dose: 1 unit Insulin Aspart (Novolog) 5 unit SC ACTID [facility] Last Admin: 05/29/16 08:31 Dose: 5 unit Insulin Glargine (Lantus) 20 unit SC [facility] Last Admin: 05/28/16 22:22 Dose: 20 units Loratadine (Claritin) 10 mg PO DAILY [facility] Last Admin: 05/29/16 10:23 Dose: 10 mg Mycophenolate Mofetil (Cellcept Cap) 750 mg PO BID [facility] Last Admin: 05/29/16 10:22 Dose: 750 mg Prednisone (Prednisone Tab) 5 mg PO DAILY [facility] Last Admin: 05/29/16 10:23 Dose: 5 mg Rosuvastatin Calcium (Crestor) 5 mg PO [facility] Last Admin: 05/28/16 22:23 Dose: 5 mg Sertraline HCl (Zoloft) 100 mg PO DAILY [facility] Last Admin: 05/29/16 10:20 Dose: 100 mg Sitagliptin Phosphate (Januvia) 25 mg PO DAILY [facility] Last Admin: 05/19/16 10:44 Dose: 25 mg Tacrolimus (Prograf Cap) 2 mg PO [facility] Last Admin: 05/29/16 10:24 Dose: 2 mg Tacrolimus (Prograf Cap) 1.5 mg PO [facility] Last Admin: 05/28/16 22:23 Dose: 1.5 mg Trazodone HCl (Desyrel) 100 mg PO [facility] Last Admin: 05/28/16 22:23 Dose: 100 mg - Labs Labs: 05/26/16 06:49 05/26/16 06:49 - Constitutional Appears: Non-toxic, No Acute Distress - Head Exam Head Exam: ATRAUMATIC, NORMAL INSPECTION, NORMOCEPHALIC - Eye Exam Eye Exam: EOMI, Normal appearance, PERRL Pupil Exam: NORMAL ACCOMODATION, PERRL - ENT Exam ENT Exam: Mucous Membranes Moist, Normal Exam - Neck Exam Neck Exam: Full ROM, Normal Inspection - Respiratory Exam Respiratory Exam: Clear to Ausculation Bilateral, NORMAL BREATHING PATTERN - Cardiovascular Exam Cardiovascular Exam: REGULAR RHYTHM, +S1, +S2 - GI/Abdominal Exam GI & Abdominal Exam: Soft, Normal Bowel Sounds. absent: Tenderness - Extremities Exam Extremities Exam: Full ROM, Normal Inspection. absent: Pedal Edema - Back Exam Back Exam: Full ROM, NORMAL INSPECTION - Neurological Exam Neurological Exam: Alert, Awake, CN II-XII Intact, Oriented x3 - Psychiatric Exam Psychiatric exam: Normal Affect, Normal Mood - Skin Skin Exam: Dry, Intact, Normal Color, Warm Assessment and Plan - Assessment and Plan (Free Text) Assessment: Diabetes BS in 100-200's HgbA1c 12.1 Cont Lantus 20 Units HS Insulin Aspart 10U SC ACBL with holding parameters changed to Novolog 8 Units ACTID decreased to 5 Units ACTID Cont home medications: Glimepiride 4mg PO daily Cont ISS ACHS- low protocol Neurontin 300mg po bid Januvia 25mg po daily- holding Accuchecks Diabetic Diet Monitor Nasal congestion Cont Claritin 10mg PO daily Monitor Hx Kidney transplant 2002 Tacrolimus 1.5mg po hs Tacrolimus 2mg po qam Prednisone 5mg po daily Cellcept 500mg po q12 Tacrolimus level 8.1 FU mycophenolate level- send out lab, still pending Hypertension BP 114/75 Cont Enalapril 5mg po daily TSH 0.43- low Free T4 1.07 Hypercholesterolemia Lipid panel TG 85, Chol 121, LDL 46, HDl 49 Cont Crestor 5mg PO QHS Depression and suicidal ideation Managed as per psych Schizophrenia Managed as per psych Multi drug abuse Managed as per psych PPX Pepcid 20mg po daily Patient is ambulating- no SCDs on psych floor Diabetic Diet Dispo: mgmt as per psych Cont current medical mgmt Ambulate Labs WNL Low threshold to transfer to med-surg for possible sepsis in light of pt's immunosuppression due to kidney transplant FU mycophenolate levels Monitor blood sugars DW attending <Giancarlo Griffiths - Last Filed: 05/29/16 15:13> Objective - Vital Signs/Intake and Output Vital Signs (last 24 hours): Temp Pulse Resp BP Pulse Ox 97.8 F 99 H 20 101/71 98 05/29/16 11:01 05/29/16 11:01 05/29/16 11:01 05/29/16 11:01 05/18/16 02:12 - Labs Labs: 05/26/16 06:49 05/26/16 06:49 Attending/Attestation - Attestation I have personally seen and examined this patient.: Yes I have fully participated in the care of the patient.: Yes I have reviewed all pertinent clinical information, including history, physical exam and plan: Yes Notes (Text): 05/29/16 15:12 Patient was seen and examined at bedside Patient is comfortable Diabetes is better controlled now. No further episode of hyperglycemia or hypoglycemia. We will continue to monitor the patient during his stay in the hospital.
[2016-05-29 11:02] VITALS: PULSE 99; RESP 20; TEMP 97.8
== END 2016-05-29 12:55 | disposition home or self-care (01) | DRG 885 ==
LOC: C.ER 21:45 → C.5E 05-18 00:46
PROC: GZ3ZZZZ Medication Management (ICD-10-PCS; principal; 2016-05-18)
PROC: GZ56ZZZ Individual Psychotherapy, Supportive (ICD-10-PCS; 2016-05-18)
PROC: HZ59ZZZ Individual Psychotherapy for Substance Abuse Treatment, Supportive (ICD-10-PCS; 2016-05-18)
DX: F25.1 Schizoaffective disorder, depressive type (principal); R45.851 Suicidal ideations; Z94.0 Kidney transplant status; F11.10 Opioid abuse, uncomplicated; F14.10 Cocaine abuse, uncomplicated; F12.10 Cannabis abuse, uncomplicated; F10.180 Alcohol abuse with alcohol-induced anxiety disorder; E11.9 Type 2 diabetes mellitus without complications; I10 Essential (primary) hypertension; E78.00 Pure hypercholesterolemia, unspecified; Z79.4 Long term (current) use of insulin

== ENCOUNTER 2017-01-07 14:45 | Emergency (ER) | payer MEDICARE, OTHER ==
[2017-01-07 14:45] VITALS: BMI 20.1
[2017-01-07 15:08] VITALS: O2SAT 98
[2017-01-07] MEDS ORDERED: Piperacillin/Tazobact 3.375 GM in Sodium Chloride 100 ML IVPB STA (15:54)
[2017-01-07] MEDS ORDERED: Piperacill/Tazo 3.375gm in Dex 3.375 GM/50 ML BAG IVPB ONE (16:30)
[2017-01-07] MEDS ORDERED: Vancomycin 1 gm/NS 200 ml 1 GM/200 ML BAG IVPB ONE (16:30)
[2017-01-07 16:31] LABS: BASO % 0.2 % (0.0-2.0); EOS % 0.2 % (0.0-4.0); HEMATOCRIT 39.1 % (35.0-51.0); LYMPH # 0.9 K/uL (1.0-4.3); LYMPH % 8.2 % (20.0-40.0); MEAN CELL VOLUME 87.4 fL (80.0-94.0); MEAN CORPUSCULAR HEMOGLOBIN 29.1 pg (27.0-31.0); MEAN CORPUSCULAR HGB CONC 33.3 g/dL (33.0-37.0); MEAN PLATELET VOLUME 8.9 fL (7.2-11.7); MONO # 1.3 K/uL (0.0-0.8); MONO % 11.7 % (0.0-10.0); NRBC % 0.1 % (0.0-2.0); PLATELET COUNT 228 K/uL (130-400)
[2017-01-07 16:49] LABS: BLOOD UREA NITROGEN 18 mg/dL (9-20); CALCIUM 8.8 mg/dl (8.6-10.4); CARBON DIOXIDE 24 mmol/L (22-30); CHLORIDE 95 mmol/L (98-107); GFR AFRICAN-AMERICAN > 60; GLUCOSE,RANDOM 210 mg/dL (75-110); POTASSIUM 4.4 mmol/L (3.6-5.2); SODIUM 131 mmol/L (132-148); TOTAL PROTEIN 7.1 g/dL (6.3-8.3)
[2017-01-07 16:50] LABS: ALB/GLOB RATIO 1.3 (1.0-2.1); ALKALINE PHOSPHATASE 78 U/L (38-126); ALT/SGPT 79 U/L (21-72); AST/SGOT 53 U/L (17-59); BILIRUBIN,TOTAL 1.4 mg/dL (0.2-1.3)
--- NOTE | 2017-01-07 16:50 | C.PDOC ---
History Of Present Illness 36 y/o male with PSHx of Kidney transplant in 2001 presents to ED with complaints of rash to right lower leg for 2 days. Patient denies trauma, injury or any other complaints at this time. Time Seen by Provider: 01/07/17 15:26 Chief Complaint (Nursing): Abnormal Skin Integrity History Per: Patient History/Exam Limitations: no limitations Onset/Duration Of Symptoms: Days Current Symptoms Are (Timing): Still Present Location Of Injury: Right: Leg Quality Of Symptoms: Painful, Itching Past Medical History Reviewed: Historical Data, Nursing Documentation, Vital Signs Vital Signs: Last Vital Signs Temp 99.0 F 01/07/17 15:00 Pulse 99 H 01/07/17 15:00 Resp 20 01/07/17 15:00 BP 116/83 01/07/17 15:00 Pulse Ox 98 01/07/17 16:51 - Medical History PMH: Diabetes, HTN, Hypercholesterolemia, Chronic Kidney Disease Surgical History: No Surg Hx - [facility] Procedures INDIV PSYCHOTHERAPY FOR SUBSTANCE ABUSE TREATMENT, SUPPORT (05/18/16) INDIVIDUAL PSYCHOTHERAPY, SUPPORTIVE (05/18/16) MEDICATION MANAGEMENT (05/18/16) Family History: States: No Known Family Hx - Social History Hx Tobacco Use: No Hx Alcohol Use: Yes (OCC) Hx Substance Use: Yes - Immunization History Hx Tetanus Toxoid Vaccination: Yes Hx Influenza Vaccination: No Hx Pneumococcal Vaccination: No Review Of Systems Constitutional: Negative for: Fever, Chills Cardiovascular: Negative for: Chest Pain Respiratory: Negative for: Shortness of Breath Gastrointestinal: Negative for: Nausea, Vomiting Skin: Positive for: Rash Neurological: Negative for: Weakness, Numbness Physical Exam - Physical Exam Appears: Non-toxic, No Acute Distress Skin: Warm, Dry, Rash (Erythematous are to mid tibula region (-)flunctuance (+) surrounding erythema) Head: Atraumatic, Normacephalic Eye(s): bilateral: Normal Inspection Oral Mucosa: Moist Neck: Normal ROM, Supple Chest: Symmetrical Cardiovascular: Rhythm Regular Respiratory: Normal Breath Sounds, No Rales, No Rhonchi, No Wheezing Extremity: Normal ROM, Capillary Refill (<2 seconds) Neurological/Psych: Oriented x3 ED Course And Treatment - Laboratory Results Result Diagrams: 01/07/17 16:28 01/07/17 16:28 O2 Sat by Pulse Oximetry: 98 (RA) Pulse Ox Interpretation: Normal Medical Decision Making Medical Decision Making: Assessment: Early abscess Disposition Counseled Patient/Family Regarding: Studies Performed, Diagnosis, Need For Followup, Rx Given - Disposition Disposition: HOME/ ROUTINE Disposition Time: 18:22 Condition: STABLE Additional Instructions: return for wound check tomorrow call to make an appointment take medications as prescribed return to hospital if symptoms worsens or progress Prescriptions: Amoxicillin/Clavulanate [Augmentin 875 MG-125 MG] 1 tab PO BID #20 tab Sulfamethoxazole/Trimethoprim [Bactrim DS 800 mg-160 mg] 1 tab PO BID #14 tab Instructions: Abscess (ED), Cellulitis (DC) Forms: [employer] (Portuguese) - POA Location Of Wound: leg - Clinical Impression Clinical Impression: Cellulitis, Abscess - Scribe Statement The provider has reviewed the documentation as recorded by the Lorna Castellon All medical record entries made by the Reannaibreed were at my direction and personally dictated by me. I have reviewed the chart and agree that the record accurately reflects my personal performance of the history, physical exam, medical decision making, and the department course for this patient. I have also personally directed, reviewed, and agree with the discharge instructions and disposition.
[2017-01-07 16:56] LABS: NEUTROPHIL 83 % (50-75); TOTAL CELLS COUNTED 100
[2017-01-07 18:29] VITALS: BP 116/80; PULSE 70; RESP 18; TEMP 98
== END 2017-01-07 18:39 | disposition home or self-care (01) ==
LOC: C.ER 14:45
DX: L03.115 Cellulitis of right lower limb (principal); L02.415 Cutaneous abscess of right lower limb
CPT/HCPCS: 80053; 85025; 96365; 96375; 99284; J2543; J3370

== ENCOUNTER 2017-01-08 08:10 | Emergency (ER) | payer MEDICARE, OTHER ==
[2017-01-08 08:10] VITALS: BMI 20.1
[2017-01-08 08:14] VITALS: TEMP 99.5
[2017-01-08] MEDS ORDERED: Oxycodone/Acetaminophen 5/325 mg Tab PO STA (08:31)
[2017-01-08] MEDS ORDERED: Lidocaine 1% Inj (20ml) INFIL STA (08:31)
[2017-01-08] MEDS ORDERED: Oxycodone/Acetaminophen 5/325 mg Tab ONE (08:39)
[2017-01-08] MEDS ORDERED: Amoxicillin-Clav 875-125 mg Tab PO STA (08:39)
[2017-01-08] MEDS ORDERED: Lidocaine 2% Inj (20ml) ONE (08:39)
[2017-01-08] MEDS ORDERED: Amoxicillin-Clav 875-125 mg Tab PO ONE (09:44)
[2017-01-08] MEDS ORDERED: Tmp-Smz 800 mg-160 mg DS Tab PO STA (09:57)
[2017-01-08] MEDS ORDERED: Tmp-Smz 800 mg-160 mg DS Tab ONE (10:00)
--- NOTE | 2017-01-08 10:00 | C.PDOC ---
History Of Present Illness 36-year-old male presents to the emergency department with complaints of right lower leg pain and swelling for the past three days. Patient was seen in ER yesterday, and given first dose of PO antibiotics. Patient reports he was unable to fill Rx this morning, resulting in him coming to the ER for evaluation. Patient has a Hx of diabetes and kidney transplant secondary to nephrotic syndrome. Patient denies nausea/vomiting, fever, chest pain, SOB. Time Seen by Provider: 01/08/17 08:14 Chief Complaint (Nursing): Lower Extremity Problem/Injury History Per: Patient History/Exam Limitations: no limitations Onset/Duration Of Symptoms: Days Current Symptoms Are (Timing): Still Present Past Medical History Reviewed: Historical Data, Nursing Documentation, Vital Signs Vital Signs: Last Vital Signs Temp 99.5 F 01/08/17 08:12 Pulse 95 H 01/08/17 10:10 Resp 18 01/08/17 10:10 BP 135/90 01/08/17 10:10 Pulse Ox 100 01/08/17 10:40 - Medical History PMH: Diabetes, HTN, Hypercholesterolemia, Chronic Kidney Disease - [facility] Procedures INDIV PSYCHOTHERAPY FOR SUBSTANCE ABUSE TREATMENT, SUPPORT (05/18/16) INDIVIDUAL PSYCHOTHERAPY, SUPPORTIVE (05/18/16) MEDICATION MANAGEMENT (05/18/16) Family History: States: No Known Family Hx - Social History Hx Tobacco Use: No Hx Alcohol Use: Yes (OCC) Hx Substance Use: Yes (heroin use) - Immunization History Hx Tetanus Toxoid Vaccination: Yes Hx Influenza Vaccination: No Hx Pneumococcal Vaccination: No Review Of Systems Except As Marked, All Systems Reviewed And Found Negative. Constitutional: Negative for: Fever, Chills Cardiovascular: Negative for: Chest Pain Respiratory: Negative for: Cough, Shortness of Breath Gastrointestinal: Negative for: Nausea, Vomiting, Abdominal Pain Musculoskeletal: Positive for: Leg Pain (right leg pain and swelling ) Neurological: Negative for: Weakness, Numbness Physical Exam - Physical Exam Appears: Well, Non-toxic, In Acute Distress (in mild pain ) Skin: Warm, Dry, No Rash Eye(s): bilateral: Normal Inspection Oral Mucosa: Moist Cardiovascular: Rhythm Regular Respiratory: Normal Breath Sounds, No Rales, No Rhonchi, No Wheezing Extremity: Normal ROM, Tenderness, No Calf Tenderness, Capillary Refill (<2 seconds all digits ), No Deformity, Other (Right joyce: approx 5x6cm area of erythema with 4cm fluctuant abscess in center, (+) TTP ) Pulses: Left Dorsalis Pedis: Normal, Right Dorsalis Pedis: Normal Neurological/Psych: Oriented x3 ED Course And Treatment O2 Sat by Pulse Oximetry: 100 (on RA) Pulse Ox Interpretation: Normal Progress Note: Patient treated with PO Augmentin, PO Bactrim, and PO Percocet in ED. Wound culture obtained by me, and I&D done by me. Patient accucheck 219. Reevaluation Time: 10:00 Reassessment Condition: Improved (Patient reassessed, is resting comfortably, in no distress after I&D. Patient states he will be able to fill Rxs given to him yesterday. He was instructed to return to ED in 48 hours for wound check and packing removal.) - Incision & Drainage Of Abscess Anesthesia: Lidocaine 1% Prep Used: Betadine (4mL) Procedure: Incised W/Scalpel Blade#: (11), Drained Pus (approx 10mL), Packed W/ Gauze, Cultures Obtained And Sent To Lab Disposition Counseled Patient/Family Regarding: Studies Performed, Diagnosis, Need For Followup - Disposition Referrals: [facility] [Outside] Disposition: HOME/ ROUTINE Disposition Time: 10:00 Condition: STABLE Additional Instructions: FILL YOUR PRESCRIPTION FOR YOUR ANTIBIOTICS RETURN THURSDAY FOR WOUND CHECK AND PACKING REMOVAL RETURN TO ER SOONER IF SYMPTOMS WORSEN Instructions: Abscess (ED) Forms: [facility] (Uzbek) Print Language: ALBANIAN - POA Present On Arrival: None - Clinical Impression Clinical Impression: Abscess of right leg - Scribe Statement The provider has reviewed the documentation as recorded by the Lorna Hamilton All medical record entries made by the Lorna were at my direction and personally dictated by me. I have reviewed the chart and agree that the record accurately reflects my personal performance of the history, physical exam, medical decision making, and the department course for this patient. I have also personally directed, reviewed, and agree with the discharge instructions and disposition.
[2017-01-08 10:10] VITALS: BP 135/90; PULSE 95; RESP 18
[2017-01-08 10:23] VITALS: O2SAT 100
== END 2017-01-08 10:11 | disposition home or self-care (01) ==
LOC: C.ER 08:10
DX: L02.415 Cutaneous abscess of right lower limb (principal); E11.9 Type 2 diabetes mellitus without complications

== ENCOUNTER 2017-01-10 10:22 | Emergency (ER) | payer MEDICARE, OTHER ==
[2017-01-10 10:22] VITALS: BMI 20.1
[2017-01-10 10:33] VITALS: RESP 20; TEMP 98.7
[2017-01-10 11:37] VITALS: BP 128/82; PULSE 108
[2017-01-10 11:41] VITALS: O2SAT 97
--- NOTE | 2017-01-10 11:41 | C.PDOC ---
History Of Present Illness FOR WOUND CHECK SP I&D R LEG 01/08. PS COMPLIANT W ABX NO FEVER. "REDNESS LOOKS THE SAME". PS BASELINE FS "200-300" EXAM NAD SKIN HEALING WOUND R LOWER LEG S/P I&D SCANT BLOOD OUTPUT W SCANT PURULENT DC. + LOCAL ERYTHEMA NONTEND, NONINDURATED PSYCH +ANXIOUS BUT CALM, COOPERATIVE REMAINDER NEG PROCEDURE WOUND REPACKED W /" IODOFORM. PT TOLERATED WELL. WOUND DRESSED MDM ADVISED RETURN 2-3 DAYS FOR WOUND CHECK, FU PMD FOR BETTER DM CONTROL Time Seen by Provider: 01/10/17 10:38 Chief Complaint (Nursing): Abnormal Skin Integrity Past Medical History Vital Signs: Last Vital Signs Temp 98.7 F 01/10/17 10:32 Pulse 130 H 01/10/17 10:32 Resp 20 01/10/17 10:32 BP 126/88 01/10/17 10:32 Pulse Ox 97 01/10/17 10:32 - Medical History PMH: Diabetes, HTN, Hypercholesterolemia, Chronic Kidney Disease Denies: HIV, Seizures, Sexually Transmitted Disease - [facility] Procedures INDIV PSYCHOTHERAPY FOR SUBSTANCE ABUSE TREATMENT, SUPPORT (05/18/16) INDIVIDUAL PSYCHOTHERAPY, SUPPORTIVE (05/18/16) MEDICATION MANAGEMENT (05/18/16) - Social History Hx Tobacco Use: No Hx Alcohol Use: Yes (OCC) Hx Substance Use: Yes (last use yesterday) - Immunization History Hx Tetanus Toxoid Vaccination: Yes Hx Influenza Vaccination: No Hx Pneumococcal Vaccination: No ED Course And Treatment O2 Sat by Pulse Oximetry: 97 Disposition Counseled Patient/Family Regarding: Diagnosis, Need For Followup - Disposition Referrals: [facility] [Outside] [facility] [Outside] [facility] [Provider Group] Disposition: HOME/ ROUTINE Disposition Time: 11:41 Condition: IMPROVED Instructions: Abscess Follow-up (ED) - Clinical Impression Clinical Impression: Wound check, abscess
== END 2017-01-10 11:47 | disposition home or self-care (01) ==
LOC: C.ER 10:22
DX: Z51.89 Encounter for other specified aftercare (principal); E11.9 Type 2 diabetes mellitus without complications

== ENCOUNTER 2017-01-12 14:51 | Emergency (ER) | payer MEDICARE, OTHER ==
[2017-01-12 14:51] VITALS: BMI 20.1
[2017-01-12 15:27] VITALS: BP 128/86; PULSE 94; RESP 18; TEMP 98.3; O2SAT 100
--- NOTE | 2017-01-12 16:28 | C.PDOC ---
History Of Present Illness 36 yo male, presents for wound chekc s/p i and d. pt reports symptoms swelling improved. Time Seen by Provider: 01/12/17 15:50 Chief Complaint (Nursing): Wound Check Past Medical History Reviewed: Historical Data, Nursing Documentation, Vital Signs Vital Signs: Last Vital Signs Temp 98.3 F 01/12/17 15:26 Pulse 94 H 01/12/17 15:26 Resp 18 01/12/17 15:26 BP 128/86 01/12/17 15:26 Pulse Ox 100 01/12/17 15:26 - Medical History PMH: Diabetes, HTN, Hypercholesterolemia, Chronic Kidney Disease Denies: HIV, Seizures, Sexually Transmitted Disease - [facility] Procedures INDIV PSYCHOTHERAPY FOR SUBSTANCE ABUSE TREATMENT, SUPPORT (05/18/16) INDIVIDUAL PSYCHOTHERAPY, SUPPORTIVE (05/18/16) MEDICATION MANAGEMENT (05/18/16) Family History: States: Unknown Family Hx - Social History Hx Tobacco Use: No Hx Alcohol Use: Yes (OCC) Hx Substance Use: Yes (last use yesterday) - Immunization History Hx Tetanus Toxoid Vaccination: Yes Hx Influenza Vaccination: No Hx Pneumococcal Vaccination: No Review Of Systems Except As Marked, All Systems Reviewed And Found Negative. Skin: Positive for: Other (abscess) Physical Exam - Physical Exam Appears: Well, No Acute Distress Skin: Normal Color, Warm, Dry Eye(s): bilateral: Normal Inspection, PERRL, EOMI Nose: Normal Throat: Normal Neck: Normal Cardiovascular: Rhythm Regular Respiratory: Normal Breath Sounds Gastrointestinal/Abdominal: Normal Exam Back: Normal Inspection Extremity: Normal ROM, Other (right leg wound abscess no purulent dc no erythema ) ED Course And Treatment O2 Sat by Pulse Oximetry: 100 Medical Decision Making Medical Decision Making: packing removed. cavity irrigated, dressing bactracin applied. Disposition - Disposition Disposition: HOME/ ROUTINE Disposition Time: 16:28 Condition: STABLE Instructions: Abscess (ED) - Clinical Impression Clinical Impression: Wound check, abscess
== END 2017-01-12 16:37 | disposition home or self-care (01) ==
LOC: C.ER 14:51
DX: Z51.89 Encounter for other specified aftercare (principal)

== ENCOUNTER → 2018-02-11 23:01 | Emergency (ER) | payer OTHER ==
[2018-02-11 23:02] VITALS: BMI 20.1
== END | disposition left against medical advice (07) ==
LOC: C.ER 23:01
DX: Z02.89 Encounter for other administrative examinations (principal); Z00.8 Encounter for other general examination

== ENCOUNTER 2018-02-17 22:37 | Emergency (ER) | payer OTHER ==
[2018-02-17 22:37] VITALS: BMI 20.1
--- NOTE | 2018-02-18 02:39 | C.PDOC ---
History Of Present Illness 37 year old male with Hx of psychiatric disorders presents requesting his monthly injection of haldol. Patient no longer has a psychiatrist, he was supposed to switch to [facility] but states his insurance is not accepted there, states he wants to get his shot before he "gets sick". Denies suicidal / homicidal ideations or hallucinations or any other complaints. Time Seen by Provider: 02/17/18 23:13 Chief Complaint (Nursing): Med Refill History Per: Patient History/Exam Limitations: no limitations Onset/Duration Of Symptoms: Days Recent travel outside of the [place]: No Past Medical History Reviewed: Historical Data, Nursing Documentation, Vital Signs Vital Signs: Last Vital Signs Temp 98.5 F 02/17/18 23:10 Pulse 92 H 02/17/18 23:10 Resp 20 02/17/18 23:10 BP 145/83 02/17/18 23:10 Pulse Ox 98 02/17/18 23:10 - Medical History PMH: Diabetes, HTN, Hypercholesterolemia Denies: Hepatitis, HIV, Chronic Kidney Disease, Seizures, Sexually Transmitted Disease - [facility] Procedures GROUP PSYCHOTHERAPY (11/04/17) INDIV PSYCHOTHERAPY FOR SUBSTANCE ABUSE TREATMENT, SUPPORT (05/18/16) INDIVIDUAL PSYCHOTHERAPY, COGNITIVE-BEHAVIORAL (11/04/17) INDIVIDUAL PSYCHOTHERAPY, SUPPORTIVE (11/04/17) MEDICATION MANAGEMENT (05/18/16) Family History: States: Unknown Family Hx - Social History Hx Tobacco Use: No Hx Alcohol Use: Yes (OCC) Hx Substance Use: No - Immunization History Hx Tetanus Toxoid Vaccination: Yes Hx Influenza Vaccination: No Hx Pneumococcal Vaccination: No Review Of Systems Constitutional: Negative for: Fever, Chills Cardiovascular: Negative for: Chest Pain, Palpitations Respiratory: Negative for: Cough, Shortness of Breath Gastrointestinal: Negative for: Nausea, Vomiting Neurological: Negative for: Weakness, Numbness Physical Exam - Physical Exam Appears: Non-toxic Skin: Normal Color, Warm, Dry Head: Atraumatic, Normacephalic Eye(s): bilateral: Normal Inspection Oral Mucosa: Moist Chest: Symmetrical, No Tenderness Cardiovascular: Rhythm Regular Respiratory: Normal Breath Sounds, No Rales, No Rhonchi, No Wheezing Gastrointestinal/Abdominal: Soft, No Tenderness Neurological/Psych: Oriented x3, Normal Speech ED Course And Treatment O2 Sat by Pulse Oximetry: 98 (Room air) Pulse Ox Interpretation: Normal Progress Note: Patient evaluated by crisis- Mr Umana and case was d/w Dr Pena who referred him to [facility] for his treatment tomorrow. Disposition - Disposition Referrals: [facility] [Outside] Disposition Time: 00:40 Condition: STABLE Forms: [facility] (Anguillan) - Clinical Impression Clinical Impression: Review of medication, Schizoaffective disorder - PA / INSTRUCTOR WARPER / Resident Statement MD/DO has reviewed & agrees with the documentation as recorded. - Scribe Statement The provider has reviewed the documentation as recorded by the Scribreed Ovalle All medical record entries made by the Lorna were at my direction and personally dictated by me. I have reviewed the chart and agree that the record accurately reflects my personal performance of the history, physical exam, medical decision making, and the department course for this patient. I have also personally directed, reviewed, and agree with the discharge instructions and disposition.
[2018-02-18 02:43] VITALS: BP 145/83; PULSE 92; RESP 20; TEMP 98.5; O2SAT 98
== END 2018-02-18 00:50 | disposition home or self-care (01) ==
LOC: C.ER 22:37
DX: F25.9 Schizoaffective disorder, unspecified (principal)

== ENCOUNTER 2018-02-26 14:04 | Emergency (ER) | payer OTHER ==
[2018-02-26 14:04] VITALS: BMI 20.1
[2018-02-26 14:13] VITALS: BP 147/100; PULSE 102; RESP 20; TEMP 98.4; O2SAT 100
== END 2018-02-26 14:17 | disposition left against medical advice (07) ==
LOC: C.ER 14:04
DX: Z02.89 Encounter for other administrative examinations (principal); S61.216A Laceration without foreign body of right little finger without damage to nail, initial encounter

== ENCOUNTER 2018-03-13 00:23 | Emergency (ER) | payer OTHER ==
[2018-03-13 00:24] VITALS: BMI 20.1
[2018-03-13 00:40] VITALS: BP 124/78; PULSE 86; RESP 24; TEMP 99.4; O2SAT 100
[2018-03-13] MEDS ORDERED: Tmp-Smz 800 mg-160 mg DS Tab PO STA (01:04)
[2018-03-13] MEDS ORDERED: Tmp-Smz 800 mg-160 mg DS Tab ONE (01:08)
--- NOTE | 2018-03-13 01:12 | C.PDOC ---
History Of Present Illness 37 year old male presents to the ED c/o draining abscess in his left buttock for the past 3 days. Patient reports painful mass to his left buttock that today he noticed had moderate amount of drainage with some to the area. Patient denies fever, chills, nausea, vomit, rash, weakness, numbness. Time Seen by Provider: 03/13/18 00:40 Chief Complaint (Nursing): Abnormal Skin Integrity History Per: Patient History/Exam Limitations: no limitations Onset/Duration Of Symptoms: Days (3) Location Of Injury: Left: Buttock Quality Of Symptoms: Painful, Swollen, Draining Recent travel outside of the [place]: No Additional History Per: Patient Past Medical History Reviewed: Historical Data, Nursing Documentation, Vital Signs Vital Signs: Last Vital Signs Temp 99.4 F 03/13/18 00:33 Pulse 86 03/13/18 00:33 Resp 24 03/13/18 00:33 BP 124/78 03/13/18 00:33 Pulse Ox 100 03/13/18 00:33 - Medical History PMH: Diabetes, HTN, Hypercholesterolemia Denies: Hepatitis, HIV, Chronic Kidney Disease, Seizures, Sexually Transmitted Disease Surgical History: No Surg Hx - [facility] Procedures GROUP PSYCHOTHERAPY (11/04/17) INDIV PSYCHOTHERAPY FOR SUBSTANCE ABUSE TREATMENT, SUPPORT (05/18/16) INDIVIDUAL PSYCHOTHERAPY, COGNITIVE-BEHAVIORAL (11/04/17) INDIVIDUAL PSYCHOTHERAPY, SUPPORTIVE (11/04/17) MEDICATION MANAGEMENT (05/18/16) Family History: States: Unknown Family Hx - Social History Hx Tobacco Use: No Hx Alcohol Use: Yes (OCC) Hx Substance Use: Yes - Immunization History Hx Tetanus Toxoid Vaccination: Yes Hx Influenza Vaccination: No Hx Pneumococcal Vaccination: No Review Of Systems Constitutional: Negative for: Fever, Chills Cardiovascular: Negative for: Chest Pain Respiratory: Negative for: Shortness of Breath Gastrointestinal: Negative for: Nausea, Vomiting, Abdominal Pain Skin: Positive for: Other (abscess). Negative for: Rash Neurological: Negative for: Weakness, Numbness, Headache Physical Exam - Physical Exam Appears: Non-toxic, No Acute Distress Skin: Warm, Dry, Other (indurated tender non fluctuant mass with open center to left buttock with minimal bloody discharge. No perianal involvement, no streaking. ) Head: Atraumatic, Normacephalic Eye(s): bilateral: Normal Inspection Neck: Normal ROM, Supple Chest: Symmetrical Cardiovascular: Rhythm Regular Respiratory: Normal Breath Sounds, No Rales, No Rhonchi, No Wheezing Extremity: Normal ROM, No Tenderness, No Swelling Neurological/Psych: Oriented x3, Normal Speech, Normal Cognition Gait: Steady ED Course And Treatment O2 Sat by Pulse Oximetry: 100 (ON RA) Pulse Ox Interpretation: Normal Progress Note: Plan: - Bactrim 1 tab PO. - Keflex 500 mg PO. - Motrin 600 mg PO. No I&D is indicated at this time, due to abscess completely drained. Patient was given a dose of antibiotics and was advised to follow up with PMD or clinic in 2 days for wound check. Disposition Counseled Patient/Family Regarding: Diagnosis, Need For Followup - Disposition Referrals: [facility] [Outside] Disposition: HOME/ ROUTINE Disposition Time: 01:08 Condition: STABLE Additional Instructions: Please Apply warm compress to area Take PO antibotics as directed Wound check in 2 days Return to ER if worse Prescriptions: Cephalexin [Keflex] 500 mg PO Q6 #20 capsule Sulfamethoxazole/Trimethoprim [Bactrim DS 800 mg-160 mg] 1 tab PO BID #14 tab Instructions: Boil (DC) Forms: [facility] (Persian) - Clinical Impression Clinical Impression: Abscess of buttock, left - PA / ANDROID FRAMEWORK DEVELOPER / Resident Statement MD/DO has reviewed & agrees with the documentation as recorded. - Scribe Statement The provider has reviewed the documentation as recorded by the Scribe Evangelista Montoya All medical record entries made by the Scribe were at my direction and personally dictated by me. I have reviewed the chart and agree that the record accurately reflects my personal performance of the history, physical exam, medical decision making, and the department course for this patient. I have also personally directed, reviewed, and agree with the discharge instructions and disposition.
== END 2018-03-13 01:16 | disposition home or self-care (01) ==
LOC: C.ER 00:23
DX: L02.31 Cutaneous abscess of buttock (principal)